=== PATIENT | female | born 1940 | race Caucasian/White ===

== ENCOUNTER → 2017-02-24 | Outpatient (CLI) | payer MEDICARE, BC | END | disposition home or self-care (01) | LOC: LABWHC1 14:47 | PROVIDERS: ATTEND Allergy & Immunology | DX: E06.3 Autoimmune thyroiditis (principal) | CPT/HCPCS: 36415; 84443 ==

== ENCOUNTER → 2017-04-16 | Outpatient (CLI) | payer MEDICARE, BC ==
[2017-04-16 17:34] LABS: Appearance,Urine Clear (Clear); Bacteria,Urine Rare /hpf; Bilirubin,Urine Negative (Negative); Glucose,Urine (UA) Negative (Negative); Ketones,Urine Negative (Negative); Leukocyte Esterase,Urine Small (Negative); Mucus,Urine Rare /hpf; Nitrite,Urine Negative (Negative); Particle Count 2162; Protein,Urine Negative (Negative); RBC,Urine <1 /hpf (0-5); Specific Gravity,Urine 1.013 (1.001-1.035); Squamous Epithelial Cell,Urine <1 /hpf (0-4); UA Billing (MACRO vs. MICRO) MICRO; Urobilinogen,Urine <2.0 mg/dL (<2.0); WBC,Urine 4 /hpf (0-5)
[2017-04-16 17:38] LABS: Partial Thromboplastin Time 22.4 sec (22.0-30.0); Prothrombin Time 10.5 sec (9.0-12.0)
== END ==
LOC: LABPAT 16:38
PROVIDERS: ATTEND Orthopaedic Surgery
DX: Z01.810 Encounter for preprocedural cardiovascular examination (principal); Z01.812 Encounter for preprocedural laboratory examination
CPT/HCPCS: 36415; 81001; 85610; 85730; 87070

== ENCOUNTER → 2017-05-31 | Outpatient (CLI) | payer MEDICARE, BC | END | disposition home or self-care (01) | LOC: LABWHC1 10:41 | PROVIDERS: ATTEND Allergy & Immunology | DX: E06.3 Autoimmune thyroiditis (principal) | CPT/HCPCS: 36415; 84436; 84439; 84443 ==

== ENCOUNTER 2018-02-01 10:41 | Day surgery (SDC) | payer MEDICARE, BC ==
[2018-01-27 15:56] VITALS: BMI 29.6
[~2018-02-01 10:41] MED LIST: LACTATED RINGERS 1,000 ML IV SCH; LIDOCAINE 1% 20 ML VIAL (10MG/ML) FOR IV START INTRADERMA PRN; ONDANSETRON 4 MG/2 ML VIAL IVP ONE
[2018-02-01] MEDS: FLURBIPROFEN 0.03% OPHTH DROPS 2.5 ML BTL OP ONE ×3 (12:43→13:00)
[2018-02-01] MEDS: CYCLOPENTOLATE 1% OPHTH SOLN 2 ML BTL OP ONE ×3 (12:46→13:03)
[2018-02-01] MEDS: PHENYLEPHRINE 10% OPHTH DROPS 5 ML BTL OP ONE ×3 (12:49→13:06)
[2018-02-01 12:57] VITALS: TEMP 97.8
[2018-02-01] MEDS ORDERED: MIDAZOLAM 2 MG/2 ML VIAL IVP ONE (13:36)
[2018-02-01] MEDS ORDERED: LIDOCAINE 1% INJ 10MG/ML (20 ML MDV) ONE (13:44)
[2018-02-01] MEDS ORDERED: PROPOFOL 10 MG/ML 20 ML VIAL IV ONE (13:44)
[2018-02-01] MEDS ORDERED: EPINEPHrine (PF) 0.5 ML in BALANCED SALT IRRIG SOLN COMB2 500 ML IRRIGATION ONE (13:54)
[2018-02-01] MEDS ORDERED: BALANCED SALT IRRIG SOLN COMB2 15 ML IRRIG.SOLN INTRAOCULA ONE (13:57)
[2018-02-01] MEDS ORDERED: HYALURONATE SODIUM INTRAOCULAR 1 EACH SYRINGE (10MG/ML) INTRAOCULA ONE (13:57)
--- NOTE | 2018-02-01 14:15 | P.OP ---
Date of Procedure: 02/01/18 Procedure(s) Performed: PREOPERATIVE DIAGNOSIS: Cataract, right eye. POSTOPERATIVE DIAGNOSIS: Cataract, right eye. OPERATION: Phacoemulsification cataract, right eye. DESCRIPTION OF PROCEDURE: The patient was taken to the preoperative holding area. Intravenous Propofol was given so as to bring about adequate sedation. The following mixture was given for local anesthesia: 5 mL of 2% lidocaine, 5 mL of 0.75% Marcaine, and 1 mL of Wydase. Approximately 4 mL was injected in the retrobulbar space of the surgical eye. Additional 1 mL was then directed to the temporal area of the surgical eye. This was performed to allow adequate neurological block of the facial muscles. The patient was revived and then taken into the operative room. The patient was prepped and draped in the usual sterile manner for the operative eye. A lid speculum was put into position. The conjunctiva was resected back from the limbus in the 12 o'clock position. Bleeding was controlled with electrocautery. A #69 blade was then used and a half-thickness scleral incision approximately 1-mm posterior to the limbus was made on bare sclera. This was shelved in the clear cornea using a crescent knife. The steep axis of astigmatism was marked using a pre-inked corneal marking device. Next a 15-degree blade was used to make a stab incision at the 3 o'clock position at the corneolimbal interface. Keratome blade was then used and the superior wound was extended into the anterior chamber. Viscoelastic was injected into the anterior chamber and to maintain its form. Next, a cystotome was used and a continuous anterior capsulotomy was made without difficulty. Hydrodissection using a blunt cannula and BSS was performed. Phaco probe was then employed and a groove extending from 12 to 6 o' clock in the lens was created. A Quentin wand was used through the stab incision so as to perform a divide and conquer technique. Next an irrigation aspiration probe was utilized and any residual cortex was removed from the eye. Again, viscoelastic was injected into the anterior chamber. An Roosevelt toric posterior chamber lens implant was placed in the cartridge and injected into the anterior chamber without difficulty. The Sinskey hook was utilized to spin the lens into position and this was again performed without any difficulty. The irrigation and aspiration probe was again employed and any residual viscoelastic was removed from the eye. Then BSS was injected into the limbal stab incision and the anterior chamber re-inflated. The conjunctiva was reapproximated using electrocautery. One drop of 0.25% Timoptic was placed over the corneal along with TobraDex ophthalmic ointment. Two sterile patches and a Grover eye shield were taped into position. The patient was transported to the recovery room in stable condition. Pathology: none sent Condition: stable Disposition: same day
[2018-02-01 14:34] VITALS: BP 117/57; PULSE 57; RESP 20
[2018-02-01] MEDS ORDERED: GENTAMICIN/PREDNISOL AC OPHTH OINT 3.5GM OPHTHALMIC ONE (23:00)
[2018-02-01] MEDS ORDERED: BUPIVACAINE (PF) 0.75% 5 ML, HYALURONIDASE, HUMAN RECOMB 150 UNIT, LIDOCAINE 2% (PF) 10... MISCELLANE ONE ×3 (23:00)
[2018-02-01] MEDS ORDERED: TIMOLOL 0.5% OPHTH DROPS 5 ML BTL OP ONE (23:00)
== END 2018-02-01 14:52 | disposition home or self-care (01) ==
LOC: OR 10:41
PROVIDERS: ATTEND Ophthalmology
DX: H25.11 Age-related nuclear cataract, right eye (principal); I34.1 Nonrheumatic mitral (valve) prolapse; E07.9 Disorder of thyroid, unspecified; M06.9 Rheumatoid arthritis, unspecified; G62.9 Polyneuropathy, unspecified; K21.9 Gastro-esophageal reflux disease without esophagitis; Z85.3 Personal history of malignant neoplasm of breast; Z90.10 Acquired absence of unspecified breast and nipple; Z79.890 Hormone replacement therapy; Z79.891 Long term (current) use of opiate analgesic; Z79.899 Other long term (current) drug therapy; Z88.8 Allergy status to other drugs, medicaments and biological substances; Z87.891 Personal history of nicotine dependence
CPT/HCPCS: 66984; V2787; C1780; J2250; J3470; J2001 ×2; J0171; J2704

== ENCOUNTER → 2018-05-26 | Outpatient (CLI) | payer MEDICARE, BC ==
[2018-05-26 14:45] LABS: HCT 42.9 % (34.0-46.0); HGB 14.2 gm/dL (11.4-16.0); MCH 31.7 pg (25.0-35.0); MCHC 33.2 g/dL (31.0-37.0); MCV 95.7 fL (80.0-100.0); Mean Platelet Volume 6.8; Platelet Count 250 k/uL (150-450); RBC 4.49 m/uL (3.80-5.40); RDW 12.8 % (11.5-15.5); WBC 5.7 k/uL (3.8-10.6)
[2018-05-26 14:54] LABS: INR 1.1 (<1.2); Partial Thromboplastin Time 25.3 sec (22.0-30.0); Prothrombin Time 10.4 sec (9.0-12.0)
[2018-05-26 14:56] LABS: Appearance,Urine Clear (Clear); Bacteria,Urine Rare /hpf; Bilirubin,Urine Negative (Negative); Blood,Urine Negative (Negative); Color,Urine Yellow; Glucose,Urine (UA) Negative (Negative); Hyaline Casts,Urine 5 /lpf (0-2); Ketones,Urine Negative (Negative); Leukocyte Esterase,Urine Large (Negative); Mucus,Urine Moderate /hpf; Nitrite,Urine Negative (Negative); Protein,Urine Negative (Negative); RBC,Urine 2 /hpf (0-5); Specific Gravity,Urine 1.019 (1.001-1.035); Squamous Epithelial Cell,Urine <1 /hpf (0-4); Urobilinogen,Urine <2.0 mg/dL (<2.0); WBC,Urine 17 /hpf (0-5)
[2018-05-26 14:59] LABS: Albumin 4.2 g/dL (3.5-5.0); Calcium 9.8 mg/dL (8.4-10.2); Potassium 4.1 mmol/L (3.5-5.1); Total Bilirubin 0.6 mg/dL (0.2-1.3); Total Protein 6.8 g/dL (6.3-8.2)
== END | disposition home or self-care (01) ==
LOC: LABPAT 13:35
PROVIDERS: ATTEND Orthopaedic Surgery
DX: Z01.812 Encounter for preprocedural laboratory examination (principal)
CPT/HCPCS: 36415; 80053; 81001; 85027; 85610; 85730; 87070

== ENCOUNTER 2018-06-06 05:47 | Inpatient (IN) | payer MEDICARE, BC ==
[2018-06-01 11:05] VITALS: BMI 28.1
[~2018-06-06 05:47] MED LIST changes: +ACETAMINOPHEN TAB 500 MG TAB PO ONE; +DEXAMETHASONE SOD PHOSPHATE 10 MG/ML 1 ML VIAL IV ONE; -LACTATED RINGERS 1,000 ML IV SCH; +MELOXICAM 7.5 MG TAB PO ONE; +MIDAZOLAM 2 MG/2 ML VIAL IV PRN; -ONDANSETRON 4 MG/2 ML VIAL IVP ONE; +TRANEXAMIC ACID 1,000 MG in SODIUM CHLORIDE 0.9% 50 ML IVPB ONE; +ceFAZolin IN SWFI 2 GM/20 ML SYRINGE IVP ONE; +fentaNYL (PF) 50 MCG/ML 2 ML AMP IV PRN
[2018-06-06] MEDS ORDERED: ONDANSETRON 4 MG/2 ML VIAL ONE (06:01)
[2018-06-06] MEDS ORDERED: LACTATED RINGERS 1,000 ML IV ONE ×2 (06:16→08:48)
[2018-06-06] MEDS ORDERED: ROPIVACAINE 246.25 MG, EPINEPHrine 0.5 MG, KETOROLAC 30 MG, cloNIDine HCL/PF 80 MCG, WA... MISCELLANE ONE ×5 (06:30)
[2018-06-06] MEDS: ONDANSETRON 4 MG/2 ML VIAL IVP ONE ×2 (06:36→09:10)
[2018-06-06] MEDS ORDERED: HYDROmorphone 1 MG/ML 1 ML SYRINGE IVP PRN ×3 (06:59)
[2018-06-06] MEDS ORDERED: NALOXONE 0.4 MG/ML 1 ML VIAL IV PRN (06:59)
[2018-06-06] MEDS ORDERED: ONDANSETRON 4 MG/2 ML VIAL IVP PRN ×2 (06:59→18:59)
[2018-06-06] MEDS ORDERED: HYDROcodone/APAP 5-325MG 1 EACH TAB PO PRN (06:59)
[2018-06-06] MEDS ORDERED: MAGNESIUM HYDROXIDE 2,400 MG/10 ML CUP PO PRN (06:59)
[2018-06-06] MEDS ORDERED: DIAZEPAM 5 MG TAB PO PRN ×2 (06:59)
[2018-06-06] MEDS ORDERED: LIDOCAINE 1% INJ 10MG/ML (20 ML MDV) ONE (07:03)
[2018-06-06] MEDS ORDERED: SODIUM CHLORIDE 0.9% IRRIG 1,000 ML BTL IRRIGATION ONE (07:03)
[2018-06-06] MEDS ORDERED: diphenhydrAMINE 50 MG/ML 1 ML VIAL ONE (07:03)
[2018-06-06] MEDS ORDERED: MIDAZOLAM 2 MG/2 ML VIAL ONE (07:03)
[2018-06-06] MEDS ORDERED: fentaNYL (PF) 50 MCG/ML 2 ML AMP ONE (07:03)
[2018-06-06] MEDS ORDERED: HEPARIN SODIUM,PORCINE 10,000 UNIT/ML 1 ML VIAL ONE (07:03)
[2018-06-06] MEDS ORDERED: SODIUM CHLORIDE 0.9% 100 ML BAG ONE (07:03)
[2018-06-06] MEDS ORDERED: TRANEXAMIC ACID 1,000 MG/10 ML VIAL ONE (07:03)
[2018-06-06] MEDS ORDERED: PROPOFOL 10 MG/ML 20 ML VIAL IV ONE (07:03)
[2018-06-06] MEDS ORDERED: ceFAZolin 3,000 MG in SODIUM CHLORIDE 0.9% IRRIGATIO 3,000 ML IRRIGATION ONE (07:39)
--- NOTE | 2018-06-06 08:41 | XR ---
EXAMINATION TYPE: XR Hip Limited LT DATE OF EXAM: 06/06/2018 COMPARISON: NONE HISTORY: Postsurgical change TECHNIQUE: One view submitted. FINDINGS: There is a prosthetic hip in near anatomic alignment. There is soft tissue edema and emphysema. IMPRESSION: 1. Postoperative change. Appears in near-anatomic alignment.
--- NOTE | 2018-06-06 08:42 | FL ---
EXAMINATION TYPE: FL guidance operating room DATE OF EXAM: 06/06/2018 HISTORY: Flouroscopy time 38 seconds of fluoroscopy provided. IMPRESSION: 1. Fluoroscopy time.
--- NOTE | 2018-06-06 08:45 | P.OP ---
Date of Procedure: 06/06/18 Preoperative Diagnosis: Severe osteoarthritis left hip Postoperative Diagnosis: Severe osteoarthritis left hip Procedure(s) Performed: Left total hip arthroplasty with a direct anterior approach Implants: Cavazos and nephew Polarstem size 3 standard [employer]azos [employer] Nephew R3, 3 hole acetabular shell, 48 mm [employer]azos [employer] Nephew reflection 6.5 mm cancellus screw, 20 mm 2 [employer]azos [employer]hew R3, XLPE 20 acetabular liner Cavazos [employer] Nephew Oxinium femoral head 32 m, +0 All components were press-fit. The articulation is Oxinium on polyethylene. Anesthesia: spinal Surgeon: Tesfaye Jones Agent Contract Clerk #1: Aziza Denis Estimated Blood Loss (ml): 200 (130 mL returned with Cell Saver) Pathology: other Condition: stable Disposition: PACU Indications for Procedure: After failure of conservative treatment we discussed the surgical and nonsurgical treatment options at length. Patient wishes to proceed with a total hip arthroplasty with a direct anterior approach. Complications specific to this procedure were discussed at length, including but not limited to infection, leg length discrepancy, dislocation, and nerve injury. Patient is aware of all these complications and informed consent was obtained Operative Findings: The operative findings are consistent with severe osteoarthritis of the left hip Description of Procedure: Patient was seen and evaluated in the preoperative area, consent was reviewed, and the surgical site was marked with a skin marker. Patient was then brought to the operating room and given prophylactic antibiotics intravenously. 1 g of Tranexamic acid was also given. A spinal anesthetic was administered by the anesthesia department. The patient was then placed on the [place] table with the bony prominences well-padded. The hip area was then prepped and draped in usual sterile fashion. A universal timeout was then performed, which confirmed the patient's name, surgical site, ALLERGIES, and procedure being performed. Next the incision site was located at 1 cm distal and 1 cm lateral to the anterior superior iliac spine. The skin and subcutaneous tissues were sharply incised. Incision was carefully dissected down to the fascia overlying the tensor fascia kallie muscle. This fascia was then incised in line with the incision. Next, using blunt finger dissection, the tensor fascia kallie muscle was dissected off its investing fascia. The muscle was then carefully retracted laterally with a cobra retractor over the lateral neck of the femur. Next, the circumflex vessels were identified and cauterized using the AquaMantis device. The anterior hip capsule was then exposed. The capsule was then opened and an inverted T fashion. Cobra retractors were then placed intracapsularly. The proximal femur was then visualized. The femoral neck was then osteotomized appropriate level above the lesser trochanter. Small amount of traction was placed with the Min[place] table. A small wedge of bone was then removed from the remaining femoral head. Next, using a corkscrew femoral head was easily removed from the acetabulum. On gross visual inspection, the femoral head had complete loss of articular cartilage in multiple periarticular osteophytes. Attention was then turned to the acetabulum. the acetabulum was exposed and any remaining labrum was excised. Sequential reaming of the acetabulum was performed using fluoroscopic guidance. When the appropriate size was reached, a trial was then placed. The position and fit of the trial was checked with fluoroscopy. The trial was then removed. Then, using fluoroscopic guidance, the final implant was impacted at 20 of anteversion and 40 of abduction, and fully seated in the acetabulum. 2 screws were then placed in the acetabulum. Again fluoroscopy was used to check position of the screws. Next, the liner was then impacted, with a 20 elevated liner located in the anterior superior quadrant. Component locking was confirmed. Attention was then directed to the femur. With the aid of the Minot table, the femur was externally rotated to approximately 130, extended, and abducted under the opposite leg. A side hook was then placed under the proximal femur, and the side hook elevator was used to elevate the proximal femur. Retractors were then placed. A capsular release was performed, as well as a release of the conjoined tendon, which afforded excellent visualization of the proximal femur. Next, a box osteotome was used to lateralize the proximal femur. A handyman was then used to locate the femoral canal. Sequential broaching was then performed with appropriate size which afforded excellent fixation in the proximal femur. A trial was then placed with appropriate head and neck, and the hip was gently reduced with the aid of the Minot table. Fluoroscopy was then used to check position of the components, as well as to ensure equal leg lengths. The hip was then gently dislocated and the trials were then removed. Final implants were then impacted and the hip was again reduced. Final fluoroscopic x-rays confirmed that the components were in anatomic position, as well as equal leg lengths. The hip was also taken through range of motion, and found to be stable. The hip was then copiously irrigated with antibiotic solution with pulsatile lavage. The hip was then irrigated with Irrisept solution. The soft tissues were then injected with a ropivacaine solution, which consisted of 246.25 mg of ropivacaine, 0.5 mg of epinephrine, 30 mg of Toradol, 80 g of clonidine, and 48.45 mL of sterile water, for a total of 100 mL of fluid injected. A second dose of 1 g of Tranexamic acid was also given. the fascia was then closed with 2-0 strata fix suture. The subcutaneous tissue was closed with 3-0 Vicryl. The subcuticular tissue was closed with 3-0 strata fix suture. The skin was then closed with Dermabond glue and a sterile silver dressing. The patient was then transferred to the recovery room in stable condition. The assistant editor SHILOH Garcia was required due to the complexity of surgery, and the need for skilled research assistant member for positioning, draping, exposure, retraction, and closure of the wound.
[2018-06-06] MEDS: LACTATED RINGERS 1,000 ML IV SCH ×2 (09:05→09:07)
[2018-06-06] MEDS: HYDROmorphone 0.5 MG/0.5 ML SYRINGE IVP PRN ×2 (09:10→09:26)
--- NOTE | 2018-06-06 09:22 | XR ---
EXAMINATION TYPE: XR Hip Limited LT DATE OF EXAM: 06/06/2018 COMPARISON: NONE HISTORY: Status post hip surgery, TECHNIQUE: One view submitted. FINDINGS: There is a prosthetic hip in near anatomic alignment. There is soft tissue edema and emphysema. IMPRESSION: 1. Postoperative change. Appears in near-anatomic alignment.
[2018-06-06] MEDS: SODIUM CHLORIDE 0.9% 1,000 ML IV SCH (09:58)
--- NOTE | 2018-06-06 12:56 | P.CONS ---
History of Present Illness - History of Present Illness This is a pleasant 78 -soaked female with past medical history of GERD, hyperlipidemia, mitral valve prolapse, spinal stenosis, osteoarthritis, rheumatoid arthritis thyroid disorder, breast cancer in 1968 status post chemo and radiotherapy, Patient was admitted for left total hip arthroplasty on 2017 secondary to severe osteoarthritis of her left hip. Review of Systems CONSTITUTIONAL: No fever, no malaise, no fatigue. HEENT: No recent visual problems or hearing problems. Denied any sore throat. CARDIOVASCULAR: No orthopnea, PND, no palpitations, no syncope. PULMONARY: No shortness of breath, no cough, no hemoptysis. GASTROINTESTINAL: No diarrhea, no nausea, no vomiting, no abdominal pain. Normoactive bowel sounds. NEUROLOGICAL: No headaches, no weakness, no numbness. HEMATOLOGICAL: Denies any bleeding or petechiae. GENITOURINARY: Denies any burning micturition, frequency, or urgency. MUSCULOSKELETAL/RHEUMATOLOGICAL: Denies any joint pain, swelling, or any muscle pain. ENDOCRINE: Denies any polyuria or polydipsia. Past Medical History Past Medical History: Cancer, Eye Disorder, GERD/Reflux, Hyperlipidemia, Mitral Valve Prolapse (MVP), Osteoarthritis (OA), Rheumatoid Arthritis (RA), Thyroid Disorder Additional Past Medical History / Comment(s): Breast Ca 1969-tx w/ chemo & radiation. urinary incontinence, hx. heart murmur, "enlarged heart" per pt. macular degeneration History of Any Multi-Drug Resistant Organisms: None Reported Past Surgical History: Breast Surgery, Cholecystectomy, Orthopedic Surgery Additional Past Surgical History / Comment(s): daniel mastectomy, partial thyroidectomy, RT knee arthroscopy. cataracts removed Past Anesthesia/Blood Transfusion Reactions: Previous Problems w/ Anesthesia, Postoperative Nausea & Vomiting (PONV) Additional Past Anesthesia/Blood Transfusion Reaction / Comm: woke up DURING PORT INSERTION; DURING CATARACT SURG WAS "BABBLING." Past Psychological History: No Psychological Hx Reported Smoking Status: Former smoker Past Alcohol Use History: Occasional Additional Past Alcohol Use History / Comment(s): quit smoking AGE 35, started as a teenager, WAS OCC USER. Past Drug Use History: None Reported - Past Family History Mother Family Medical History: Cancer Additional Family Medical History / Comment(s): Breast. Brother(s) Family Medical History: Cancer Medications and Allergies Home Medications Medication Instructions Recorded Confirmed Type Ascorbic Acid [Vitamin C] 500 mg PO DAILY 08/03/16 06/06/18 History Calcium Carbonate/Vitamin D3 1 tab PO DAILY 08/03/16 06/06/18 History [Calcium 600-Vit D3 200 Tablet] Glucosamine Sulfate 500 mg PO DAILY 08/03/16 06/06/18 History Multivitamins, Thera [Multivitamin] 1 tab PO DAILY 08/03/16 06/06/18 History Ubidecarenone [Co Q-10] 200 mg PO DAILY 08/03/16 06/06/18 History Cetirizine HCl [Zyrtec] 10 mg PO DAILY 01/27/18 06/06/18 History Cholecalciferol [Vitamin D3] 2,000 unit PO DAILY 01/27/18 06/06/18 History Garlic 1 tab PO DAILY 01/27/18 06/06/18 History Glucosam/Bj-Msm1/C/Black/Bosw 1 tab PO DAILY 01/27/18 06/06/18 History [Glucosamine-Chondroitin Tablet] Comstock-3 Fatty Acids [Comstock-3] 1,000 mg PO DAILY 01/27/18 06/06/18 History Ranitidine HCl [Zantac] 150 mg PO HS 01/27/18 06/06/18 History traMADol HCL [Ultram] 50 mg PO Q6HR PRN 01/27/18 06/06/18 History Fluticasone Nasal [place] [Flonase 2 spr EA NOSTRIL DAILY 06/01/18 06/06/18 History Nasal [place]] Focus Macular Vitamin 1 tab PO DAILY 06/01/18 06/06/18 History Levothyroxine Sodium [Synthroid] 88 mcg PO DAILY 06/06/18 06/06/18 History Allergies Allergy/AdvReac Type Severity Reaction Status Date / Time metoclopramide HCl Allergy Hallucinati Verified 06/06/18 08:58 [From Reglan] ons Physical Exam Vitals: Vital Signs Temp Pulse Pulse Resp BP Pulse Ox 06/06/18 10:45 59 L 127/65 99 06/06/18 10:30 58 L 127/66 96 06/06/18 10:15 53 L 129/76 100 06/06/18 10:00 54 L 136/76 100 06/06/18 09:45 53 L 16 126/72 99 07/23/18 09:31 54 L 16 139/61 97 06/06/18 09:17 51 L 16 133/59 92 L 06/06/18 09:00 54 L 16 135/65 98 06/06/18 08:51 97.6 F 55 L 14 132/63 98 06/06/18 06:15 98.1 F 78 18 156/72 98 Intake and Output 06/05/18 06/06/18 06/06/18 22:59 06:59 14:59 Intake Total 200 901 Output Total 250 Balance 200 651 Intake: IV 200 901 Output: Estimated Blood Loss 250 Other: Weight 76.657 kg GENERAL: The patient is alert and oriented x3, not in any acute distress. Well developed, well nourished. HEENT: Pupils are round and equally reacting to light. EOMI. No scleral icterus. No conjunctival pallor. Normocephalic, atraumatic. No pharyngeal erythema. No thyromegaly. CARDIOVASCULAR: S1 and S2 present. No murmurs, rubs, or gallops. PULMONARY: Chest is clear to auscultation, no wheezing or crackles. ABDOMEN: Soft, nontender, nondistended, normoactive bowel sounds. No palpable organomegaly. MUSCULOSKELETAL: No joint swelling or deformity. EXTREMITIES: No cyanosis, clubbing, or pedal edema. NEUROLOGICAL: Gross neurological examination did not reveal any focal deficits. SKIN: No rashes. Assessment and Plan Assessment: Severe osteoarthritis, including the left hip Status post left total hip arthroplasty on 06/03/2018 Spinal stenosis,tus Chronic low back pain, secondary to above. Status post steroid injection us month which didn't help much Hypothyroidism GERD Plan: patient was admitted for left total hip arthroplasty. Continue with symptomatic treatment. Continue with same treatment. Pain management and DVT prophylaxis as per primary team. Patient denies chest pain or dyspnea. Her pain looks controlled. Resume home medication. Monitor vitals. Expect the patient to follow-up with her primary care doctor in 1 week after discharge. Further recommendation is placed on the clinical course DVT prophylaxis, defer to the primary team. patient is on aspirin twice a day as per primary team GI prophylaxis Pepcid Thank you for consulting us
[2018-06-06] MEDS: hydrOXYzine PAMOATE 25 MG CAP PO PRN (13:04)
[2018-06-06] MEDS ORDERED: ONDANSETRON 4 MG/2 ML VIAL IVP STA (14:13)
[2018-06-06] MEDS ORDERED: diphenhydrAMINE 50 MG/ML 1 ML VIAL IVP PRN (14:15)
[2018-06-06] MEDS: ceFAZolin IN SWFI 2 GM/20 ML SYRINGE IVP SCH (15:55)
[2018-06-06] MEDS ORDERED: FAMOTIDINE 20 MG/2 ML VIAL IV SCH (21:00)
[2018-06-06] MEDS: ASPIRIN 325 MG TAB PO SCH (22:11)
[2018-06-06] MEDS: FAMOTIDINE 20 MG TAB PO SCH (22:13)
[2018-06-06] MEDS: SENNOSIDES-DOCUSATE SODIUM 1 EACH TAB PO SCH (22:14)
[2018-06-07] MEDS: ceFAZolin IN SWFI 2 GM/20 ML SYRINGE IVP SCH (00:08)
[2018-06-07] MEDS: SODIUM CHLORIDE 0.9% 1,000 ML IV SCH ×2 (00:08→15:01)
[2018-06-07] MEDS: hydrOXYzine PAMOATE 25 MG CAP PO PRN (06:01)
[2018-06-07 07:50] LABS: Basophils % (A) 0 %; Eosinophils % (A) 1 %; HCT 29.9 % (34.0-46.0); Lymphocytes # (A) 1.1 k/uL (1.0-4.8); Lymphocytes % (A) 23 %; MCH 31.3 pg (25.0-35.0); MCHC 32.8 g/dL (31.0-37.0); MCV 95.6 fL (80.0-100.0); Mean Platelet Volume 6.9; Monocytes # (A) 0.4 k/uL (0-1.0); Monocytes % (A) 8 %; Neutrophils # (A) 3.4 k/uL (1.3-7.7); Neutrophils % (A) 68 %; Platelet Count 172 k/uL (150-450); RBC 3.13 m/uL (3.80-5.40); RDW 13.2 % (11.5-15.5)
[2018-06-07 07:56] LABS: HGB 9.8 gm/dL (11.4-16.0)
[2018-06-07] MEDS ORDERED: MELOXICAM 7.5 MG TAB PO SCH (09:00)
[2018-06-07] MEDS ORDERED: KETOROLAC 60 MG/2 ML VIAL IVP STA (09:10)
--- NOTE | 2018-06-07 09:14 | P.PN ---
Subjective Progress Note Date: 06/07/18 This is a 78-year-old female who is status post left total hip arthroplasty. This is postoperative day #1. Patient is seen and evaluated at bedside with Dr. Tesfaye Jones. Patient does complain of nausea and pain today. Patient states that she has been up and walking with nursing. Patient denies any fever/ chills, numbness, weakness, tingling, abdominal pain, shortness of breath or chest pain. Objective - Vital Signs Vital signs: Vital Signs Temp 98.5 F 06/07/18 00:20 Pulse 65 06/07/18 00:20 Resp 16 06/07/18 00:50 BP 121/71 06/07/18 00:20 Pulse Ox 97 06/07/18 00:20 Intake & Output 06/06/18 06/07/18 06/07/18 18:59 06:59 18:59 Intake Total 901 1595 Output Total 250 Balance 651 1595 Weight 76.657 kg Intake: IV 901 Intake, IV Titration 845 Amount Lactated Ringers 1,000 ml 845 @ 0 mls/hr IV .[facility] Rx#:[id number] Oral 750 Output: Estimated Blood Loss 250 Other: Voiding Method Toilet Toilet Incontinent Incontinent # Voids 1 1 - Exam Vital signs are stable. Patient is in no acute distress and is alert and oriented 3. Calf is soft and nontender to palpation. Dressing is clean, dry, and intact. Patient has full foot and ankle motion without pain or difficulty. Neurovascular status and circulatory status are intact. - Labs CBC & Chem 7: 06/07/18 06:59 Labs: Abnormal Lab Results - Last 24 Hours (Table) 06/07/18 Range/Units 06:59 RBC 3.13 L (3.80-5.40) m/uL Hgb 9.8 L D (11.4-16.0) gm/dL Hct 29.9 L (34.0-46.0) % Assessment and Plan (1) Primary osteoarthritis of left hip Current Visit: Yes Status: Acute Code(s): M16.12 - UNILATERAL PRIMARY OSTEOARTHRITIS, LEFT HIP SNOMED Code(s): 862187767 (2) S/P total hip arthroplasty Current Visit: Yes Status: Acute Code(s): Z96.649 - PRESENCE OF UNSPECIFIED ARTIFICIAL HIP JOINT SNOMED Code(s): 613922755663 Plan: Continue routine postop care. Continue antocoagulation. Weightbearing as tolerated with a walker Leave dressing in place for 10 days. Likely discharge to rehab .
[2018-06-07] MEDS: FAMOTIDINE 20 MG TAB PO SCH ×2 (09:31→21:26)
[2018-06-07] MEDS: ASPIRIN 325 MG TAB PO SCH ×2 (09:31→21:25)
[2018-06-07] MEDS: LACTATED RINGERS 1,000 ML IV SCH (11:59)
[2018-06-07] MEDS ORDERED: KETOROLAC 30 MG/ML 1 ML VIAL IVP SCH (13:00)
--- NOTE | 2018-06-07 17:07 | P.PN ---
Subjective This is a pleasant 78 -soaked female with past medical history of GERD, hyperlipidemia, mitral valve prolapse, spinal stenosis, osteoarthritis, rheumatoid arthritis thyroid disorder, breast cancer in 1969 status post chemo and radiotherapy, Patient was admitted for left total hip arthroplasty on 2017 secondary to severe osteoarthritis of her left hip. 06/07/2018 Patient was sitting at bedside, complaining from mild pain at the surgery site. She had more severe pain area during the day she received stronger pain medication. Patient blood pressure was on the low side systolic blood pressure is running between 99 and 124, however patient denies chest pain, no dyspnea, no dizziness. She states usually her blood pressure runs low around 100 to 110s , patient received some IV fluids. However her IV line went off by the time I' m seeing her. Her blood pressure was 124/74 and heart rate was 66. And her pain medication change to oral. Discussed with the staff to DC NSAIDs medication Objective - Vital Signs Vital signs: Vital Signs Temp 98.7 F 06/07/18 15:30 Pulse 68 06/07/18 15:30 Resp 16 06/07/18 15:30 BP 124/74 06/07/18 16:53 Pulse Ox 97 06/07/18 15:30 Intake & Output 06/06/18 06/07/18 06/07/18 18:59 06:59 18:59 Intake Total 901 1595 Output Total 250 Balance 651 1595 Weight 76.657 kg 76.657 kg Intake: IV 901 Intake, IV Titration 845 Amount Lactated Ringers 1,000 ml 845 @ 0 mls/hr IV .[facility] ONE Rx#:[id number] Oral 750 Output: Estimated Blood Loss 250 Other: Voiding Method Toilet Toilet Incontinent Incontinent # Voids 1 1 - Exam Assessment: Severe osteoarthritis, including the left hip Status post left total hip arthroplasty on 06/03/2018 Spinal stenosis,tus Chronic low back pain, secondary to above. Status post steroid injection us month which didn't help much Hypothyroidism GERD Plan: patient was admitted for left total hip arthroplasty. Continue with symptomatic treatment. Continue with same treatment. Pain management and DVT prophylaxis as per primary team. Patient denies chest pain or dyspnea. Her pain looks controlled. Resume home medication. Monitor vitals. Expect the patient to follow-up with her primary care doctor in 1 week after discharge. Further recommendation is placed on the clinical course DVT prophylaxis, defer to the primary team. patient is on aspirin twice a day as per primary team GI prophylaxis Pepcid Thank you for consulting us - Labs CBC & Chem 7: 06/07/18 06:59 Labs: Abnormal Lab Results - Last 24 Hours (Table) 06/07/18 Range/Units 06:59 RBC 3.13 L (3.80-5.40) m/uL Hgb 9.8 L D (11.4-16.0) gm/dL Hct 29.9 L (34.0-46.0) % Assessment and Plan Assessment: Severe osteoarthritis, including the left hip Status post left total hip arthroplasty on 06/03/2018 Spinal stenosis,tus Chronic low back pain, secondary to above. Status post steroid injection us month which didn't help much Hypothyroidism GERD Plan: patient was admitted for left total hip arthroplasty. Continue with symptomatic treatment. Continue with same treatment. Pain management and DVT prophylaxis as per primary team. Patient denies chest pain or dyspnea. Her pain looks controlled. Resume home medication. Monitor vitals. Expect the patient to follow-up with her primary care doctor in 1 week after discharge. Further recommendation is placed on the clinical course Patient most likely will be discharged to inpatient physical rehab by tomorrow DVT prophylaxis, defer to the primary team. patient is on aspirin twice a day as per primary team GI prophylaxis Pepcid Thank you for consulting us
[2018-06-07] MEDS ORDERED: HYDROmorphone 2 MG TAB PO PRN ×3 (20:20→20:21)
[2018-06-07] MEDS: SENNOSIDES-DOCUSATE SODIUM 1 EACH TAB PO SCH (21:26)
[2018-06-08] MEDS: HYDROcodone/APAP 5-325MG 1 EACH TAB PO PRN ×2 (00:54→07:20)
[2018-06-08] MEDS: SODIUM CHLORIDE 0.9% 1,000 ML IV SCH (07:30)
[2018-06-08] MEDS: hydrOXYzine PAMOATE 25 MG CAP PO PRN (08:45)
[2018-06-08] MEDS: FAMOTIDINE 20 MG TAB PO SCH ×2 (08:48→20:32)
[2018-06-08] MEDS: ASPIRIN 325 MG TAB PO SCH ×2 (08:48→20:32)
[2018-06-08] MEDS ORDERED: traMADol 50 MG TAB PO PRN ×2 (09:11)
[2018-06-08] MEDS ORDERED: ONDANSETRON ODT 4 MG TAB PO STA (10:01)
[2018-06-08] MEDS: LACTATED RINGERS 1,000 ML IV SCH (11:20)
--- NOTE | 2018-06-08 13:09 | P.PN ---
Subjective Progress Note Date: 06/08/18 This is a 78-year-old female who is status post left total hip arthroplasty. This is postoperative day #2. Patient is seen and evaluated at bedside with Dr. Tesfaye Jones. patient does complain of pain in the left hip along with nausea. Patient states that she has been working with physical therapy. Patient denies any fever/chills, numbness, weakness, tingling, abdominal pain, shortness of breath or chest pain. Objective - Vital Signs Vital signs: Vital Signs Temp 98.5 F 06/08/18 07:31 Pulse 79 06/08/18 07:31 Resp 16 06/08/18 07:45 BP 146/80 06/08/18 07:31 Pulse Ox 97 06/08/18 07:31 Intake & Output 06/07/18 06/08/18 06/08/18 18:59 06:59 18:59 Intake Total 1140 118 Balance 1140 118 Weight 76.657 kg Intake: Oral 1140 118 Other: Voiding Method Toilet Incontinent # Voids 1 2 2 - Exam Vital signs are stable. Patient is in no acute distress and is alert and oriented 3. Calf is soft and nontender to palpation. Dressing is clean, dry, and intact. Patient has full foot and ankle motion without pain or difficulty. Neurovascular status and circulatory status are intact. - Labs CBC & Chem 7: 06/07/18 06:59 Assessment and Plan (1) Primary osteoarthritis of left hip Current Visit: Yes Status: Acute Code(s): M16.12 - UNILATERAL PRIMARY OSTEOARTHRITIS, LEFT HIP SNOMED Code(s): 272898020 (2) S/P total hip arthroplasty Current Visit: Yes Status: Acute Code(s): Z96.649 - PRESENCE OF UNSPECIFIED ARTIFICIAL HIP JOINT SNOMED Code(s): 665942178068 Plan: Continue routine postop care. Will change pain medication to tramadol instead of Adair to help with nausea. The patient takes tramadol at home. Continue antocoagulation. Weightbearing as tolerated with a walker Leave dressing in place for 10 days. Likely discharge to rehab .
[2018-06-08 13:16] LABS: Calcium 8.6 mg/dL (8.4-10.2)
[2018-06-08] MEDS: SENNOSIDES-DOCUSATE SODIUM 1 EACH TAB PO SCH (20:32)
[2018-06-09 07:18] LABS: Basophils % (A) 0 %; Eosinophils # (A) 0.1 k/uL (0-0.7); Eosinophils % (A) 2 %; HCT 27.9 % (34.0-46.0); HGB 9.3 gm/dL (11.4-16.0); Lymphocytes # (A) 1.1 k/uL (1.0-4.8); Lymphocytes % (A) 24 %; MCH 32.2 pg (25.0-35.0); MCHC 33.5 g/dL (31.0-37.0); MCV 96.3 fL (80.0-100.0); Mean Platelet Volume 6.9; Monocytes # (A) 0.4 k/uL (0-1.0); Monocytes % (A) 8 %; Neutrophils % (A) 65 %; Platelet Count 186 k/uL (150-450); RDW 13.2 % (11.5-15.5); WBC 4.6 k/uL (3.8-10.6)
[2018-06-09 08:26] VITALS: RESP 16
--- NOTE | 2018-06-09 08:57 | P.DS ---
Providers Date of admission: 06/06/18 05:47 Expected date of discharge: 06/09/18 Attending physician: Tesfaye Jones Consults: 06/06/18 06:59 Consult Physician Routine Consulting Provider: Sky Uribe III Consult Reason/Comments: medical management Do you want consulting provider notified?: Yes 06/06/18 09:18 Consult Physician Routine Consulting Provider: Clement Motley Consult Reason/Comments: medical managment Do you want consulting provider notified?: Yes Primary care physician: Sky Uribe - Discharge Diagnosis(es) (1) Primary osteoarthritis of left hip Current Visit: Yes Status: Acute (2) S/P total hip arthroplasty Current Visit: Yes Status: Acute Hospital Course: This is a 78-year-old female with a known history of degenerative arthritis of the left hip. The patient presents for evaluation. After discussion and consideration patient elects to proceed with total hip arthroplasty. The patient is seen preoperatively by Dr. Jones and medically cleared for surgery by their primary care physician. Patient is admitted to [facility] on 06/06/2018 for total hip arthroplasty. The procedures performed without complication or sequelae. The patient is doing well postoperatively. Labs and vital signs are stable on day of discharge. On day of discharge patient's hip incision is healing well. There is minimal erythema. There is no drainage noted at this time. There is minimal soft tissue swelling to the hip and thigh. Patient has full foot and ankle motion without difficulty or pain. Calf is soft and nontender to palpation. Neurovascular status to the left lower extremity is intact. Patient is discharged to rehab in good condition. Please see med rec for accurate list of home medications. Plan - Discharge Summary Discharge Rx Participant: Yes New Discharge Prescriptions: New Aspirin 325 mg PO BID #60 tab hydrOXYzine PAMOATE [Vistaril] 25 mg PO Q6H PRN #30 capsule PRN Reason: Pain Ondansetron Odt [Zofran Odt] 1 - 2 tab PO Q8HR PRN #21 tab PRN Reason: Nausea Sennosides [Senokot] 1 tab PO BID #60 tablet traMADol HCl [Ultram] 50 mg PO Q6H PRN #28 tab PRN Reason: Pain No Action Multivitamins, Thera [Multivitamin] 1 tab PO DAILY Glucosamine Sulfate 500 mg PO DAILY Calcium Carbonate/Vitamin D3 [Calcium 600-Vit D3 200 Tablet] 1 tab PO DAILY Ascorbic Acid [Vitamin C] 500 mg PO DAILY Ubidecarenone [Co Q-10] 200 mg PO DAILY Cetirizine HCl [Zyrtec] 10 mg PO DAILY Cholecalciferol [Vitamin D3] 2,000 unit PO DAILY Garlic 1 tab PO DAILY Glucosam/Bj-Msm1/C/Black/Bosw [Glucosamine-Chondroitin Tablet] 1 tab PO DAILY [place]-3 Fatty Acids [[place]-3] 1,000 mg PO DAILY Ranitidine HCl [Zantac] 150 mg PO HS traMADol HCL [Ultram] 50 mg PO Q6HR PRN PRN Reason: Pain Fluticasone Nasal [place] [Flonase Nasal [place]] 2 spr EA NOSTRIL DAILY Focus Macular Vitamin 1 tab PO DAILY Levothyroxine Sodium [Synthroid] 88 mcg PO DAILY Discharge Medication List Ascorbic Acid [Vitamin C] 500 mg PO DAILY 08/03/16 [History] Calcium Carbonate/Vitamin D3 [Calcium 600-Vit D3 200 Tablet] 1 tab PO DAILY [History] Glucosamine Sulfate 500 mg PO DAILY 08/03/16 [History] Multivitamins, Thera [Multivitamin] 1 tab PO DAILY 08/03/16 [History] Ubidecarenone [Co Q-10] 200 mg PO DAILY 08/03/16 [History] Cetirizine HCl [Zyrtec] 10 mg PO DAILY 01/27/18 [History] Cholecalciferol [Vitamin D3] 2,000 unit PO DAILY 01/27/18 [History] Garlic 1 tab PO DAILY 01/27/18 [History] Glucosam/Bj-Msm1/C/Black/Bosw [Glucosamine-Chondroitin Tablet] 1 tab PO DAILY 01/27/18 [History] [place]-3 Fatty Acids [[place]-3] 1,000 mg PO DAILY 01/27/18 [History] Ranitidine HCl [Zantac] 150 mg PO HS 01/27/18 [History] traMADol HCL [Ultram] 50 mg PO Q6HR PRN 01/27/18 [History] Fluticasone Nasal [place] [Flonase Nasal [place]] 2 spr EA NOSTRIL DAILY 06/01/18 [ History] Focus Macular Vitamin 1 tab PO DAILY 06/01/18 [History] Levothyroxine Sodium [Synthroid] 88 mcg PO DAILY 06/06/18 [History] Aspirin 325 mg PO BID #60 tab 06/09/18 [Rx] Ondansetron Odt [Zofran Odt] 1 - 2 tab PO Q8HR PRN #21 tab 06/09/18 [Rx] Sennosides [Senokot] 1 tab PO BID #60 tablet 06/09/18 [Rx] hydrOXYzine PAMOATE [Vistaril] 25 mg PO Q6H PRN #30 capsule 06/09/18 [Rx] traMADol HCl [Ultram] 50 mg PO Q6H PRN #28 tab 06/09/18 [Rx] Follow up Appointment(s)/Referral(s): Sky Uribe III, MD [Primary Care Provider] - 1 Week Tesfaye Jones DO [Doctor of Osteopathic Medicine] - 06/20/18 8:50 am Activity/Diet/Wound Care/Special Instructions: Weightbearing as tolerated with walker Leave dressing intact. Dressing may be removed by home care nurse in 10 days. May shower with dressing on. Follow-up with [facility] in 2 weeks, please call with any questions or concerns [phone] Discharge Disposition: TRANSFER TO SNF/ECF
[2018-06-09] MEDS: FAMOTIDINE 20 MG TAB PO SCH (09:04)
[2018-06-09] MEDS: ASPIRIN 325 MG TAB PO SCH (09:04)
[2018-06-09] MEDS: LACTATED RINGERS 1,000 ML IV SCH (10:37)
[2018-06-09 15:07] VITALS: BP 99/62; PULSE 67; TEMP 97.9
--- NOTE | 2018-06-09 20:31 | P.PN ---
Subjective This is a pleasant 78 -soaked female with past medical history of GERD, hyperlipidemia, mitral valve prolapse, spinal stenosis, osteoarthritis, rheumatoid arthritis thyroid disorder, breast cancer in 1969 status post chemo and radiotherapy, Patient was admitted for left total hip arthroplasty on 2017 secondary to severe osteoarthritis of her left hip. 06/07/2018 Patient was sitting at bedside, complaining from mild pain at the surgery site. She had more severe pain area during the day she received stronger pain medication. Patient blood pressure was on the low side systolic blood pressure is running between 99 and 124, however patient denies chest pain, no dyspnea, no dizziness. She states usually her blood pressure runs low around 100 to 110s , patient received some IV fluids. However her IV line went off by the time I' m seeing her. Her blood pressure was 124/74 and heart rate was 66. And her pain medication change to oral. Discussed with the staff to DC NSAIDs medication 06/08/2018 Patient was lying in bed, sleeping, easily to awake. She is a AAOx3. Patient could not tolerate [place], causing projectile vomiting 06/09/2018 pt is lying in bed , not in distress, no new complaint , she is AAO3, no chest pain ,no dyspnea , no change in urine or bowel habits, her nausea and vomiting are resolved, minimal pain at the surgical side , that pt does not want pain medication when i saw her, pt is going to be discharged to rehab today and pt is agreeable Objective - Vital Signs Vital signs: Vital Signs Temp 98.3 F 06/09/18 07:50 Pulse 71 06/09/18 07:50 Resp 16 06/09/18 07:50 BP 114/72 06/09/18 07:50 Pulse Ox 99 06/09/18 07:50 Intake & Output 06/08/18 06/09/18 06/09/18 18:59 06:59 18:59 Intake Total 238 960 240 Balance 238 960 240 Intake: Oral 238 960 240 Other: # Voids 2 1 1 - Exam Assessment: Severe osteoarthritis, including the left hip Status post left total hip arthroplasty on 06/03/2018 Spinal stenosis,tus Chronic low back pain, secondary to above. Status post steroid injection us month which didn't help much Hypothyroidism GERD Plan: patient was admitted for left total hip arthroplasty. Continue with symptomatic treatment. Continue with same treatment. Pain management and DVT prophylaxis as per primary team. Patient denies chest pain or dyspnea. Her pain looks controlled. Resume home medication. Monitor vitals. Expect the patient to follow-up with her primary care doctor in 1 week after discharge. Further recommendation is placed on the clinical course DVT prophylaxis, defer to the primary team. patient is on aspirin twice a day as per primary team GI prophylaxis Pepcid Thank you for consulting us - Labs CBC & Chem 7: 06/09/18 06:36 06/08/18 12:33 Labs: Abnormal Lab Results - Last 24 Hours (Table) 06/09/18 Range/Units 06:36 RBC 2.90 L (3.80-5.40) m/uL Hgb 9.3 L (11.4-16.0) gm/dL Hct 27.9 L (34.0-46.0) % Assessment and Plan Assessment: Severe osteoarthritis, including the left hip Status post left total hip arthroplasty on 06/03/2018 Spinal stenosis,tus Chronic low back pain, secondary to above. Status post steroid injection us month which didn't help much Hypothyroidism GERD Plan: patient was admitted for left total hip arthroplasty. Continue with symptomatic treatment. Continue with same treatment. Pain management and DVT prophylaxis as per primary team. Patient denies chest pain or dyspnea. Her pain looks controlled. Resume home medication. Monitor vitals. Expect the patient to follow-up with her primary care doctor in 1 week after discharge. Further recommendation is placed on the clinical course Patient most likely will be discharged to inpatient physical rehab by tomorrow, pt is stable from medical standpoint to be discharged today DVT prophylaxis, defer to the primary team. patient is on aspirin twice a day as per primary team GI prophylaxis Pepcid we recommend pt f/u with her pcp in one week , pt instructed and she agrees Thank you for consulting us
== END 2018-06-09 15:35 | DRG 470 ==
LOC: 2ORMAIN 05:47 → 3SUR 08:51
PROVIDERS: ADMIT Orthopaedic Surgery; ATTEND Orthopaedic Surgery
PROC: 30233N0 Transfusion of Autologous Red Blood Cells into Peripheral Vein, Percutaneous Approach (ICD-10-PCS; 2018-06-06)
PROC: 0SRD06A Replacement of Left Knee Joint with Oxidized Zirconium on Polyethylene Synthetic Substitute, Uncemented, Open Approach (ICD-10-PCS; principal; 2018-06-06 07:00)
DX: M16.12 Unilateral primary osteoarthritis, left hip (principal); E78.5 Hyperlipidemia, unspecified; H35.30 Unspecified macular degeneration; I08.0 Rheumatic disorders of both mitral and aortic valves; K21.9 Gastro-esophageal reflux disease without esophagitis; M06.9 Rheumatoid arthritis, unspecified; G89.29 Other chronic pain; M48.00 Spinal stenosis, site unspecified; R32 Unspecified urinary incontinence; M54.5 Low back pain; E89.0 Postprocedural hypothyroidism; H91.90 Unspecified hearing loss, unspecified ear; R26.81 Unsteadiness on feet; Z85.3 Personal history of malignant neoplasm of breast; Z87.891 Personal history of nicotine dependence; Z92.21 Personal history of antineoplastic chemotherapy; Z92.3 Personal history of irradiation; Z98.42 Cataract extraction status, left eye; Z98.41 Cataract extraction status, right eye; Z96.1 Presence of intraocular lens; Z79.890 Hormone replacement therapy; Z79.899 Other long term (current) drug therapy; Z88.6 Allergy status to analgesic agent; Z88.8 Allergy status to other drugs, medicaments and biological substances; Z91.048 Other nonmedicinal substance allergy status; Z90.13 Acquired absence of bilateral breasts and nipples; Z90.49 Acquired absence of other specified parts of digestive tract; Z80.9 Family history of malignant neoplasm, unspecified
CPT/HCPCS: 73501; 80048; 83735; 85025; 86850; 86891; 86900; 86901; 88305; 88311

== ENCOUNTER 2019-02-14 17:12 | Emergency (ER) | payer MEDICARE, BC ==
[2019-02-14 17:23] VITALS: TEMP 97.9
[2019-02-14] MEDS ORDERED: SODIUM CHLORIDE 0.9% 500 ML 500 ML IV STA (17:54)
[2019-02-14 18:18] LABS: Basophils % (A) 0 %; Eosinophils # (A) 0.2 k/uL (0-0.7); Eosinophils % (A) 3 %; HGB 13.4 gm/dL (11.4-16.0); Lymphocytes # (A) 1.9 k/uL (1.0-4.8); Lymphocytes % (A) 35 %; MCH 29.6 pg (25.0-35.0); MCHC 31.2 g/dL (31.0-37.0); MCV 94.9 fL (80.0-100.0); Mean Platelet Volume 7.1; Monocytes # (A) 0.3 k/uL (0-1.0); Monocytes % (A) 5 %; Neutrophils % (A) 55 %; Platelet Count 234 k/uL (150-450); RBC 4.53 m/uL (3.80-5.40); RDW 13.5 % (11.5-15.5); WBC 5.5 k/uL (3.8-10.6)
--- NOTE | 2019-02-14 18:20 | ED ---
General Adult HPI - General Chief complaint: Neuro Symptoms/Deficit Stated complaint: dizziness Time Seen by Provider: 02/14/19 17:36 Source: patient, RN notes reviewed Mode of arrival: ambulatory Limitations: no limitations - History of Present Illness Initial comments: 78-year-old female with a PMH including Breast cancer, mitral valve prolapse, hyperlipidemia, GERD, cataracts, rheumatoid arthritis, thyroid disorder presents to the emergency department for a chief complaint of dizziness. Patient states that about 1.5 hours prior to arrival she had an acute onset episode of dizziness. She states the room was spinning around her. Patient states she was at her friend's house when this occurred. This lasted for about 3 minutes and then resolved. Patient states she used of floaters in her right eye and went to the eye doctor immediately after this episode of dizziness because he told her to come there if she had any symptoms due to possibility of detach retina. Patient was evaluated and there was no detached retina found but she was sent to the emergency department for possible TIA. Patient has had a complete resolution of symptoms stating she is feeling completely better. She has not experienced something like this before. Does admit that she felt unsteady when this occurred. Patient has no other complaints at this time including shortness of breath, chest pain, abdominal pain, nausea or vomiting, headache, or visual changes. - Related Data Home Medications Medication Instructions Recorded Confirmed Ascorbic Acid [Vitamin C] 500 mg PO DAILY 08/03/16 02/14/19 Calcium Carbonate/Vitamin D3 1 tab PO DAILY 08/03/16 02/14/19 [Calcium 600-Vit D3 200 Tablet] Multivitamins, Thera [Multivitamin 1 tab PO DAILY 08/03/16 02/14/19 (formulary)] Cetirizine HCl [Zyrtec] 10 mg PO DAILY 01/27/18 02/14/19 Cholecalciferol [Vitamin D3] 2,000 unit PO DAILY 01/27/18 02/14/19 Garlic 1 tab PO DAILY 01/27/18 02/14/19 Glucosam/Bj-Msm1/C/Black/Bosw 1 tab PO DAILY 01/27/18 02/14/19 [Glucosamine-Chondroitin Tablet] [place]-3 Fatty Acids [[place]-3] 1,000 mg PO DAILY 01/27/18 02/14/19 Fluticasone Nasal [place] [Flonase 2 spr EA NOSTRIL DAILY 06/01/18 02/14/19 Nasal [place]] Focus Macular Vitamin 1 tab PO DAILY 06/01/18 02/14/19 Levothyroxine Sodium [Synthroid] 88 mcg PO DAILY 06/06/18 02/14/19 Allergies Allergy/AdvReac Type Severity Reaction Status Date / Time metoclopramide HCl Allergy Hallucinati Verified 02/14/19 18:06 [From Reglan] ons Review of Systems ROS Statement: Those systems with pertinent positive or pertinent negative responses have been documented in the HPI. ROS Other: All systems not noted in ROS Statement are negative. Past Medical History Past Medical History: Cancer, Eye Disorder, GERD/Reflux, Hyperlipidemia, Mitral Valve Prolapse (MVP), Rheumatoid Arthritis (RA), Thyroid Disorder Additional Past Medical History / Comment(s): Breast Ca 1969-tx w/ chemo & radiation. RT EYE CATARACT. History of Any Multi-Drug Resistant Organisms: None Reported Past Surgical History: Breast Surgery, Cholecystectomy, Orthopedic Surgery Additional Past Surgical History / Comment(s): daniel mastectomy, partial thy roidectomy, RT knee arthroscopy. EXC LT EYE CATARCT. Past Anesthesia/Blood Transfusion Reactions: Previous Problems w/ Anesthesia Additional Past Anesthesia/Blood Transfusion Reaction / Comment(s): wakes up during OR - DURING PORT INSERTION; DURING CATARACT SURG WAS "BABBLING." Past Psychological History: No Psychological Hx Reported Smoking Status: Former smoker Past Alcohol Use History: Occasional Past Drug Use History: None Reported - Past Family History Mother Family Medical History: Cancer Additional Family Medical History / Comment(s): Breast. 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 Absent: scleral icterus, conjunctival injection, periorbital swelling ENT exam: Present: normal exam, normal oropharynx, mucous membranes moist, TM's normal bilaterally, normal external ear exam Neck exam: Present: normal inspection, full ROM. Absent: tenderness, meningismus, lymphadenopathy Respiratory exam: Present: normal lung sounds bilaterally. Absent: respiratory distress, wheezes, rales, rhonchi, stridor Cardiovascular Exam: Present: regular rate, normal rhythm, normal heart sounds. Absent: systolic murmur, diastolic murmur, rubs, gallop, clicks GI/Abdominal exam: Present: soft, normal bowel sounds. Absent: distended, tenderness, guarding, rebound, rigid Extremities exam: Present: normal inspection, full ROM, normal capillary refill. Absent: tenderness, pedal edema, joint swelling, calf tenderness Neurological exam: Present: alert, oriented X3, CN II-XII intact, normal gait. Absent: motor sensory deficit Expanded Patient oriented to: Present: person, place, time Speech: Present: fluid speech Cranial nerves: EOM's Intact: Normal, Tongue Deviation: Normal, Nystagmus: Normal, Facial Sensation: Normal Cerebellar function: Finger to Nose: Normal, Heel to [place]: Normal, Romberg: Normal Upper motor neuron: Pronator Drift: Normal Sensory exam: Upper Extremity Light Touch: Normal, Upper Extremity Pin Prick: Normal, Lower Extremity Light Touch: Normal, Lower Extremity Pin Prick: Normal Motor strength exam: RUE: 5 (no drift), LUE: 5 (no drift), RLE: 5 (no drift), LLE: 5 (no drift) Eye Response: (4) open spontaneously Motor Response: (6) obeys commands Verbal Response: (5) oriented [place] Total: 15 Psychiatric exam: Present: normal affect, normal mood Course Vital Signs 02/14/19 02/14/19 02/14/19 17:17 18:15 18:30 Temperature 97.9 F Pulse Rate 91 50 L 52 L Respiratory 18 18 16 Rate Blood Pressure 166/81 142/84 142/84 O2 Sat by Pulse 97 98 99 Oximetry 02/14/19 02/14/19 18:45 19:00 Temperature Pulse Rate 53 L Respiratory 16 Rate Blood Pressure 158/78 158/78 O2 Sat by Pulse 98 Oximetry EKG Findings - EKG Comments: EKG Findings:: Sinus bradycardia, ventricular rate 54, WI interval 194, QRS duration 90, QTc 443 Medical Decision Making - Medical Decision Making 78-year-old female presents to the emergency department for a chief complaint of sudden onset dizziness lasting 3 minutes and then completely resolving. No other complaints at this time. Patient has well appearing, reading a book in the emergency department. Patient states the dizziness worsened with head movements and the room was spinning. EKG unremarkable. CBC CMP unremarkable. Creatinine 1.22, patient given fluids and educated on hydration therapy. CT shows cervical atrophy and chronic small vessel ischemia without any intracranial acute abnormality. Chest x-ray shows no acute findings. Troponin is negative. On reevaluation patient is still asymptomatic, feeling ready to go home. Patient likely experienced symptoms related to peripheral vertigo. Patient will follow up with primary care in 1-2 days. She'll return here if she has any worsening symptoms. - Lab Data Result diagrams: 02/14/19 18:02 02/14/19 18:02 Lab Results 02/14/19 02/14/19 02/14/19 Range/Units 18:02 18: 18:02 WBC 5.5 (3.8-10.6) k/uL RBC 4.53 (3.80-5.40) m/uL Hgb 13.4 (11.4-16.0) gm/dL Hct 43.0 (34.0-46.0) % MCV 94.9 (80.0-100.0) fL MCH 29.6 (25.0-35.0) pg MCHC 31.2 (31.0-37.0) g/dL RDW 13.5 (11.5-15.5) % Plt Count 234 (150-450) k/uL Neutrophils % 55 % Lymphocytes % 35 % Monocytes % 5 % Eosinophils % 3 % Basophils % 0 % Neutrophils # 3.0 (1.3-7.7) k/uL Lymphocytes # 1.9 (1.0-4.8) k/uL Monocytes # 0.3 (0-1.0) k/uL Eosinophils # 0.2 (0-0.7) k/uL Basophils # 0.0 (0-0.2) k/uL PT 10.8 (9.0-12.0) sec INR 1.0 (<1.2) APTT 26.8 (22.0-30.0) sec Sodium 139 (137-145) mmol/L Potassium 4.1 (3.5-5.1) mmol/L Chloride 108 H (98-107) mmol/L Carbon Dioxide 24 (22-30) mmol/L Anion Gap 7 mmol/L BUN 21 H (7-17) mg/dL Creatinine 1.22 H (0.52-1.04) mg/dL Est GFR (CKD-EPI)AfAm 49 (>60 ml/min/1.73 sqM) Est GFR (CKD-EPI)NonAf 43 (>60 ml/min/1.73 sqM) Glucose 90 (74-99) mg/dL Calcium 9.5 (8.4-10.2) mg/dL Magnesium 1.9 (1.6-2.3) mg/dL Total Bilirubin 0.5 (0.2-1.3) mg/dL AST 20 (14-36) U/L ALT 21 (9-52) U/L Alkaline Phosphatase 66 (38-126) U/L Troponin I (0.000-0.034) ng/mL Total Protein 6.6 (6.3-8.2) g/dL Albumin 4.0 (3.5-5.0) g/dL 02/14/19 Range/Units 18:02 WBC (3.8-10.6) k/uL RBC (3.80-5.40) m/uL Hgb (11.4-16.0) gm/dL Hct (34.0-46.0) % MCV (80.0-100.0) fL MCH (25.0-35.0) pg MCHC (31.0-37.0) g/dL RDW (11.5-15.5) % Plt Count (150-450) k/uL Neutrophils % % Lymphocytes % % Monocytes % % Eosinophils % % Basophils % % Neutrophils # (1.3-7.7) k/uL Lymphocytes # (1.0-4.8) k/uL Monocytes # (0-1.0) k/uL Eosinophils # (0-0.7) k/uL Basophils # (0-0.2) k/uL PT (9.0-12.0) sec INR (<1.2) APTT (22.0-30.0) sec Sodium (137-145) mmol/L Potassium (3.5-5.1) mmol/L Chloride (98-107) mmol/L Carbon Dioxide (22-30) mmol/L Anion Gap mmol/L BUN (7-17) mg/dL Creatinine (0.52-1.04) mg/dL Est GFR (CKD-EPI)AfAm (>60 ml/min/1.73 sqM) Est GFR (CKD-EPI)NonAf (>60 ml/min/1.73 sqM) Glucose (74-99) mg/dL Calcium (8.4-10.2) mg/dL Magnesium (1.6-2.3) mg/dL Total Bilirubin (0.2-1.3) mg/dL AST (14-36) U/L ALT (9-52) U/L Alkaline Phosphatase (38-126) U/L Troponin I <0.012 (0.000-0.034) ng/mL Total Protein (6.3-8.2) g/dL Albumin (3.5-5.0) g/dL Disposition Clinical Impression: Vertigo Disposition: HOME SELF-CARE Condition: Good Instructions (If sedation given, give patient instructions): Vertigo (ED) Additional Instructions: Please follow-up with your primary care provider at your scheduled appointment in 2 days. If you have any worsening symptoms return here to the emergency department. Is patient prescribed a controlled substance at d/c from ED?: No Referrals: Sky Uribe III, MD [Primary Care Provider] - 1-2 days Time of Disposition: 19:36
[2019-02-14 18:32] LABS: Calcium 9.5 mg/dL (8.4-10.2); Magnesium 1.9 mg/dL (1.6-2.3); Potassium 4.1 mmol/L (3.5-5.1); Total Bilirubin 0.5 mg/dL (0.2-1.3); Total Protein 6.6 g/dL (6.3-8.2)
[2019-02-14 18:35] LABS: Partial Thromboplastin Time 26.8 sec (22.0-30.0); Prothrombin Time 10.8 sec (9.0-12.0)
--- NOTE | 2019-02-14 19:01 | CT ---
EXAMINATION TYPE: CT brain wo con DATE OF EXAM: 02/14/2019 COMPARISON: None HISTORY: neuro deficits CT DLP: 1119.4 mGycm Automated exposure control for dose reduction was used. FINDINGS: There is cerebral cortical atrophy. There is patchy hypodensity in the periventricular white matter. There is no mass effect nor midline shift. There is no sign of intracranial hemorrhage. Calvarium is intact. IMPRESSION: CEREBRAL ATROPHY AND CHRONIC SMALL VESSEL ISCHEMIA. NO ACUTE INTRACRANIAL ABNORMALITY.
--- NOTE | 2019-02-14 19:08 | XR ---
EXAMINATION TYPE: XR chest 2V DATE OF EXAM: 02/14/2019 COMPARISON: NONE HISTORY: Dizziness TECHNIQUE: Frontal and lateral views of the chest are obtained. FINDINGS: There is no heart failure nor confluent pneumonic infiltrate. There is some triangular-sha ped increased density at the left lung apex consistent with scarring. Costophrenic angles are clear. There is osteopenia. IMPRESSION: No acute lung disease. Left upper lobe scarring unchanged compared to January 15, 2016. Nor mal heart.
[2019-02-14 19:19] VITALS: BP 158/78; PULSE 53; RESP 16
== END 2019-02-14 19:54 | disposition home or self-care (01) ==
LOC: EC 17:12
DX: R42 Dizziness and giddiness (principal); G31.9 Degenerative disease of nervous system, unspecified; I99.8 Other disorder of circulatory system; E07.9 Disorder of thyroid, unspecified; Z85.3 Personal history of malignant neoplasm of breast; Z92.21 Personal history of antineoplastic chemotherapy; Z87.891 Personal history of nicotine dependence; Z79.890 Hormone replacement therapy; Z79.899 Other long term (current) drug therapy; Z88.8 Allergy status to other drugs, medicaments and biological substances
CPT/HCPCS: 36415; 70450; 71046; 80053; 83735; 84484; 85025; 85610; 85730; 93005; 96360; 99284

== ENCOUNTER → 2019-02-27 | Outpatient (CLI) | payer MEDICARE, BC ==
--- NOTE | 2019-02-27 18:13 | US ---
EXAMINATION TYPE: US carotid duplex BILAT DATE OF EXAM: 02/27/2019 COMPARISON: US 2014 CLINICAL HISTORY: 78-year-old female R42 Dizziness and giddiness; E78.2 mixed hyperlipidemia. Hyperli pidemia. TECHNIQUE: Carotid duplex ultrasound examination. Indirect Doppler criteria was utilized. FINDINGS: EXAM MEASUREMENTS: RIGHT: Peak Systolic Velocity (PSV) cm/sec ----- Right CCA: 77.3 ----- Right ICA: 74.7 ----- Right ECA: 96.3 ICA/CCA ratio: 1.0 RIGHT: End Diastole cm/sec ----- Right CCA: 13.6 ----- Right ICA: 0.0 ----- Right ECA: 9.5 LEFT: Peak Systolic Velocity (PSV) cm/sec ----- Left CCA: 60.2 ----- Left ICA: 80.9 ----- Left ECA: 69.4 ICA/CCA ratio: 1.3 LEFT: End Diastole cm/sec ----- Left CCA: 11.1 ----- Left ICA: 23.7 ----- Left ECA: 0.0 VERTEBRALS (direction of flow): Right Vertebral: Antegrade Left Vertebral: Antegrade Rhythm: Normal Civil Technician notes: Intimal thickening seen bilateral carotid arteries. Minimal echogenic plaque seen bilateral carotid bulbs. No elevated velocities obtained. No significant stenosis visualized. IMPRESSION: No hemodynamically significant ICA stenosis on either side. Criteria for Assigning % of Stenosis / Diameter reduction (Estimation based on the indirect measurements of the internal carotid artery velocities (ICA PSV). 1. Normal (no stenosis)=ICA PSV < 125 cm/s: ratio < 2.0: ICA EDV<40 cm/s. 2. Less than 50% stenosis=ICA PSV < 125 cm/s: ratio < 2.0: ICA EDV<40 cm/s. 3. 50 to 69% stenosis=ICA PSV of 125 to 230 cm/s: ration 2.0 ? 4.0: ICA EDV 40-100 cm/s. 4. Greater than 70% stenosis to near occlusion= ICA PSV > 230 cm/s: ratio > 4.0: ICA EDV > 100 cm/s. 5. Near occlusion= ICA PSV velocities may be low or undetectable: variable ratio and ICA EDV. 6. Total occlusion=unable to detect flow.
== END | disposition home or self-care (01) ==
LOC: RADUSWWP 13:33
PROVIDERS: ATTEND Physician Assistant Medical
DX: R42 Dizziness and giddiness (principal); E78.2 Mixed hyperlipidemia
CPT/HCPCS: 93880

== ENCOUNTER 2019-03-28 09:18 | Day surgery (SDC) | payer MEDICARE, BC ==
[2019-03-23 15:03] VITALS: BMI 28.6
[~2019-03-28 09:18] MED LIST changes: -ACETAMINOPHEN TAB 500 MG TAB PO ONE; -DEXAMETHASONE SOD PHOSPHATE 10 MG/ML 1 ML VIAL IV ONE; +LACTATED RINGERS 1,000 ML IV SCH; -LIDOCAINE 1% 20 ML VIAL (10MG/ML) FOR IV START INTRADERMA PRN; -MELOXICAM 7.5 MG TAB PO ONE; -MIDAZOLAM 2 MG/2 ML VIAL IV PRN; -TRANEXAMIC ACID 1,000 MG in SODIUM CHLORIDE 0.9% 50 ML IVPB ONE; -ceFAZolin IN SWFI 2 GM/20 ML SYRINGE IVP ONE; -fentaNYL (PF) 50 MCG/ML 2 ML AMP IV PRN
[2019-03-28 10:34] VITALS: TEMP 97
[2019-03-28] MEDS ORDERED: LIDOCAINE 1% 20 ML VIAL (10MG/ML) FOR IV START INTRADERMA ONE (10:43)
[2019-03-28] MEDS ORDERED: PROPOFOL 10 MG/ML 20 ML VIAL IV ONE (12:15)
--- NOTE | 2019-03-28 12:18 | P.GSHP ---
History of Present Illness H&P Date: 03/28/19 Chief Complaint: Change in bowel habits Patient here today with complaints of change in bowel habits. Frequent episodes of diarrhea and occasional episodes of incontinence. No rectal bleeding. Last colonoscopy 10-15 years ago. That was normal. Past Medical History Past Medical History: Cancer, GERD/Reflux, Hyperlipidemia, Mitral Valve Prolapse (MVP), Rheumatoid Arthritis (RA), Thyroid Disorder Additional Past Medical History / Comment(s): Breast Ca 1969-tx w/ chemo & radiation. History of Any Multi-Drug Resistant Organisms: None Reported Past Surgical History: Breast Surgery, Cholecystectomy, Joint Replacement, Orthopedic Surgery Additional Past Surgical History / Comment(s): daniel mastectomy, partial thyroidectomy, RT knee arthroscopy. EXC BILAT CATARCT. LT NOLAN, COLONOSCOPY Past Anesthesia/Blood Transfusion Reactions: Previous Problems w/ Anesthesia Additional Past Anesthesia/Blood Transfusion Reaction / Comment(s): wakes up during OR - DURING PORT INSERTION; DURING CATARACT SURG WAS "BABBLING." Past Psychological History: Depression Smoking Status: Former smoker Past Alcohol Use History: Occasional Additional Past Alcohol Use History / Comment(s): quit smoking AGE 35, started as a teenager, WAS OCC USER. Past Drug Use History: None Reported - Past Family History Mother Family Medical History: Cancer Additional Family Medical History / Comment(s): Breast. Brother(s) Family Medical History: Cancer Medications and Allergies Home Medications Medication Instructions Recorded Confirmed Type Ascorbic Acid [Vitamin C] 500 mg PO DAILY 08/03/16 03/23/19 History Calcium Carbonate/Vitamin D3 1 tab PO DAILY 08/03/16 03/23/19 History [Calcium 600-Vit D3 200 Tablet] Multivitamins, Thera [Multivitamin 1 tab PO DAILY 08/03/16 03/23/19 History (formulary)] Cetirizine HCl [Zyrtec] 10 mg PO DAILY 01/27/18 03/23/19 History Cholecalciferol [Vitamin D3 (25 2,000 unit PO DAILY 01/27/18 03/23/19 History Mcg = 1000 Iu)] Garlic 1 tab PO DAILY 01/27/18 03/23/19 History Glucosam/Bj-Msm1/C/Black/Bosw 1 tab PO DAILY 01/27/18 03/23/19 History [Glucosamine-Chondroitin Tablet] [place]-3 Fatty Acids [[place]-3] 1,000 mg PO DAILY 01/27/18 03/23/19 History Fluticasone Nasal [place] [Flonase 2 spr EA NOSTRIL DAILY 06/01/18 03/23/19 History Nasal [place]] Focus Macular Vitamin 1 tab PO DAILY 06/01/18 03/23/19 History Levothyroxine Sodium [Synthroid] 88 mcg PO DAILY 06/06/18 03/23/19 History Escitalopram [Lexapro] 10 mg PO DAILY 03/23/19 03/23/19 History Ranitidine HCl [Zantac] 150 mg PO HS 03/23/19 03/23/19 History traMADol HCL [Ultram] 50 mg PO Q6HR PRN 03/23/19 03/23/19 History Allergies Allergy/AdvReac Type Severity Reaction Status Date / Time anastrozole [From Arimidex] Allergy Rash/Hives Verified 03/28/19 10:32 metoclopramide HCl Allergy Hallucinati Verified 03/23/19 14:48 [From Reglan] ons Surgical - Exam Vital Signs Temp Pulse Resp BP Pulse Ox 97 F L 72 18 122/60 95 03/28/19 10:33 03/28/19 10:33 03/28/19 10:33 03/28/19 10:33 03/28/19 10:33 Physical exam: General: Well-developed, well-nourished HEENT: Normocephalic, sclerae nonicteric Abdomen: Nontender, nondistended Extremities: No edema Neuro: Alert and oriented Assessment and Plan (1) Colon cancer screening Narrative/Plan: Will proceed with colonoscopy Current Visit: Yes Status: Acute Code(s): Z12.11 - ENCOUNTER FOR SCREENING FOR MALIGNANT NEOPLASM OF COLON SNOMED Code(s): 950934391
--- NOTE | 2019-03-28 12:55 | P.PCN ---
Date of Procedure: 03/28/19 Procedure(s) Performed: PREOPERATIVE DIAGNOSIS: Change in bowel habits, chronic diarrhea POSTOPERATIVE DIAGNOSIS: Rectal polyp, transverse colon polyp PROCEDURE: Colonoscopy with snare polypectomy and biopsy ANESTHESIA: MAC SURGEON: Moisés Talbot M.D. SPECIMENS: Antrum colon, transverse colon polyp, rectal polyp ENDOSCOPIC PROCEDURE: The patient was placed on the endoscopy table in the left decubitus position. The Olympus colonoscope was inserted into the anus and passed under direct visualization to the base of the cecum. The appendiceal orifice was visualized. From that point the scope was slowly withdrawn inspecting all surfaces carefully. There were no neoplastic inflammatory or polypoid lesions throughout the cecum or ascending colon. In the mid transverse colon a small polyp was identified and removed using the cold biopsy forceps. The remainder of the transverse descending and sigmoid colon appeared normal. In the rectum a sessile polyp was identified and removed using the snare with cautery technique. I did take random biopsies throughout the colon to evaluate for microscopic colitis. Digital rectal examination was normal. There was no visible diverticulosis seen. The patient was taken to the recovery room in stable condition per anesthesia guidelines. RECOMMENDATIONS: Await biopsy results. Increase probiotics. Trial of Questran.
[2019-03-28 13:08] VITALS: RESP 16
[2019-03-28 13:26] VITALS: BP 150/64; PULSE 60
== END 2019-03-28 13:41 | disposition home or self-care (01) ==
LOC: ORWHC2ENDO 09:18
PROVIDERS: ATTEND Surgery
DX: D12.3 Benign neoplasm of transverse colon (principal); K62.1 Rectal polyp; K52.9 Noninfective gastroenteritis and colitis, unspecified; K21.9 Gastro-esophageal reflux disease without esophagitis; E78.5 Hyperlipidemia, unspecified; I34.1 Nonrheumatic mitral (valve) prolapse; M06.9 Rheumatoid arthritis, unspecified; F32.9 Major depressive disorder, single episode, unspecified; M19.90 Unspecified osteoarthritis, unspecified site; E89.0 Postprocedural hypothyroidism; N28.9 Disorder of kidney and ureter, unspecified; Z79.899 Other long term (current) drug therapy; Z85.3 Personal history of malignant neoplasm of breast; Z87.891 Personal history of nicotine dependence; Z88.8 Allergy status to other drugs, medicaments and biological substances; Z79.890 Hormone replacement therapy; Z90.13 Acquired absence of bilateral breasts and nipples
CPT/HCPCS: 88305; 45385; 45380; J2704

== ENCOUNTER → 2019-09-11 | Outpatient (CLI) | payer MEDICARE, BC ==
--- NOTE | 2019-09-11 15:54 | NM ---
EXAMINATION TYPE: NM bone scan whole body DATE OF EXAM: 09/11/2019 COMPARISON: Prior bone scan dated 01/17/2016 HISTORY: Breast cancer Delayed whole-body scanning was performed following the injection of 23.9 mCi Tc 99m MDP. Images acq uired 3.5 hours post injection. FINDINGS: There is mild uptake within the shoulders, the, knees, spine as on prior exam. Soft tissue uptake is normal. No area of increased or decreased uptake to suggest metastatic disease. Photopenic area in th e left hip consistent with postop change. Uptake in the maxilla and mandible is likely due to periodo ntal disease. There is mild spinal curvature. IMPRESSION: Essentially stable exam. No suspicious abnormal uptake. Postop change to the left hip, correlate.
== END | disposition home or self-care (01) ==
LOC: RADNMMAIN 10:23
PROVIDERS: ATTEND Internal Medicine Hematology & Oncology
DX: M54.9 Dorsalgia, unspecified (principal); C50.919 Malignant neoplasm of unspecified site of unspecified female breast
CPT/HCPCS: 78306; A9503

== ENCOUNTER 2020-01-01 21:21 | Emergency (ER) | payer MEDICARE, BC ==
[2020-01-01] MEDS ORDERED: MORPHINE SULFATE 4 MG/ML SYRINGE IVP STA (21:32)
[2020-01-01 22:07] LABS: Albumin 4.4 g/dL (3.5-5.0); Potassium 3.9 mmol/L (3.5-5.1); Total Bilirubin 0.4 mg/dL (0.2-1.3); Total Protein 7.3 g/dL (6.3-8.2)
--- NOTE | 2020-01-01 22:09 | XR ---
EXAMINATION TYPE: XR Hip Complete LT DATE OF EXAM: 01/01/2020 COMPARISON: 06/06/2018 HISTORY: Hip pain TECHNIQUE: 2 views FINDINGS: there is left hip prosthesis. Components are in anatomic position. Sacroiliac joint appears normal. I see no fracture. IMPRESSION: Negative left hip exam. No change.
[2020-01-01 22:17] LABS: HCT 44.8 % (34.0-46.0); HGB 14.8 gm/dL (11.4-16.0); MCH 31.1 pg (25.0-35.0); MCHC 33.1 g/dL (31.0-37.0); MCV 94.1 fL (80.0-100.0); Mean Platelet Volume 7.5; Platelet Count 193 k/uL (150-450); RBC 4.76 m/uL (3.80-5.40); RDW 12.7 % (11.5-15.5); WBC 4.8 k/uL (3.8-10.6)
[2020-01-01 22:40] LABS: Eosinophils # (M) 0.05 k/uL (0-0.7); Lymphocytes # (M) 1.87 k/uL (1.0-4.8); Monocytes # (M) 0.29 k/uL (0-1.0); Neutrophils # (M) 2.59 k/uL (1.3-7.7); Neutrophils % (M) 54 %; Nucleated Red Blood Cells 0 /100 WBC (0-0); Total Cells Counted 100
--- NOTE | 2020-01-01 22:47 | US ---
EXAMINATION TYPE: US venous doppler duplex LE LT DATE OF EXAM: 01/01/2020 10:33 PM COMPARISON: NONE CLINICAL HISTORY: pain, swelling. Pain left lateral leg intermittently, worse x 1 day. Swelling. Josefina ent not taking blood thinners. No hx of DVT. SIDE PERFORMED: Left TECHNIQUE: The lower extremity deep venous system is examined utilizing real time linear array sonog fitz with graded compression, doppler sonography and color-flow sonography. VESSELS IMAGED: External Iliac Vein (EIV) Common Femoral Vein Deep Femoral Vein Greater Saphenous Vein * Femoral Vein Popliteal Vein Small Saphenous Vein * Proximal Calf Veins (* superficial vessels) Left Leg: No evidence of DVT in veins imaged at this time from prox calf veins to EIV. IMPRESSION: Negative exam. No evidence of deep vein thrombosis in the left leg.
--- NOTE | 2020-01-01 22:55 | ED ---
Lower Extremity Injury HPI - General Chief Complaint: Extremity Injury, Lower Stated Complaint: leg pain Time Seen by Provider: 01/01/20 21:29 Source: patient, EMS Mode of arrival: EMS Limitations: no limitations - History of Present Illness Initial Comments: Cynthia is a pleasant 79yo female who presents to the ER today via ambulance for evaluation of left leg pain. Patient reports that she had a left hip replacement and since that time she suffered from chronic left leg pain. Patient reports that over the past couple of weeks the pain seems to be worsening. Patient reports that she recently got a recliner and has noticed that whenever she attempts to get out of the recliner she has significant pain in the leg. Anus primarily in the calf. Patient reports that the pain becomes so severe she can't bear weight and so she has been crawling around. Patient reports that today she visited a friend and was sitting in the recliner at a friend's house, when she got up to leave the house to have significant pain so she had to crawl from the front porch to her car. Upon returning home patient's pain persisted so she called ambulance for transport to the hospital. Patient reports she does have a walker at home she has used in the past but hasn't been using lately. She has not seen physical therapy. Patient denies any falls or injury. Denies any history of peripheral neuropathy. - Related Data Home Medications Medication Instructions Recorded Confirmed Ascorbic Acid [Vitamin C] 500 mg PO HS 08/03/16 01/01/20 Multivitamins, Thera [Multivitamin 1 tab PO DAILY 08/03/16 01/01/20 (formulary)] Cholecalciferol [Vitamin D3 (25 2,000 unit PO HS 01/27/18 01/01/20 Mcg = 1000 Iu)] Glucosam/Bj-Msm1/C/Black/Bosw 1 tab PO DAILY 01/27/18 01/01/20 [Glucosamine-Chondroitin Tablet] Fluticasone Nasal [place] [Flonase 2 spr EA NOSTRIL DAILY PRN 06/01/18 01/01/20 Nasal [place]] Ranitidine HCl [Zantac] 150 mg PO HS 03/23/19 01/01/20 Levothyroxine Sodium [Synthroid] 100 mcg PO DAILY 01/01/20 01/01/20 Vit C/E/Zn/Coppr/Lutein/Zeaxan 1 cap PO DAILY 01/01/20 01/01/20 [Preservision Areds 2 Softgel] Allergies Allergy/AdvReac Type Severity Reaction Status Date / Time anastrozole [From Arimidex] Allergy Rash/Hives Verified 01/01/20 21:27 metoclopramide HCl Allergy Hallucinati Verified 01/01/20 21:27 [From Reglan] ons Review of Systems ROS Statement: Those systems with pertinent positive or pertinent negative responses have been documented in the HPI. ROS Other: All systems not noted in ROS Statement are negative. Past Medical History Past Medical History: Cancer, Eye Disorder, GERD/Reflux, Hyperlipidemia, Mitral Valve Prolapse (MVP), Rheumatoid Arthritis (RA), Thyroid Disorder Additional Past Medical History / Comment(s): Breast Ca 1969-tx w/ chemo & radiation. RT EYE CATARACT. History of Any Multi-Drug Resistant Organisms: None Reported Past Surgical History: Breast Surgery, Cholecystectomy, Orthopedic Surgery Additional Past Surgical History / Comment(s): daniel mastectomy, partial thyroidectomy, RT knee arthroscopy. EXC LT EYE CATARCT. Past Anesthesia/Blood Transfusion Reactions: Previous Problems w/ Anesthesia Additional Past Anesthesia/Blood Transfusion Reaction / Comment(s): wakes up during OR - DURING PORT INSERTION; DURING CATARACT SURG WAS "BABBLING." Past Psychological History: No Psychological Hx Reported Smoking Status: Former smoker Past Alcohol Use History: Occasional Past Drug Use History: None Reported - Past Family History Mother Family Medical History: Cancer Additional Family Medical History / Comment(s): Breast. Brother(s) Family Medical History: Cancer General Exam - General Exam Comments Initial Comments: Physical Exam GENERAL: Patient is well-developed and well-nourished. Patient is nontoxic and well- hydrated and is in no distress. HENT: Normocephalic, Atraumatic. EYES: PERRL, EOMI PULMONARY: Unlabored respirations. No audible rales rhonchi or wheezing was noted. CARDIOVASCULAR: There is a regular rate and rhythm without any murmurs gallops or rubs. Strong DP PT pulses bilaterally ABDOMEN: Soft and nontender with normal bowel sounds. SKIN: Skin is clear with no lesions or rashes and otherwise unremarkable. : Deferred NEUROLOGIC: Patient is alert and oriented x3. Moving all extremities spontaneously MUSCULOSKELETAL: Normal extremities with adequate strength and full range of motion. No lower extremity swelling or edema. No calf tenderness. All plantar flexion dorsiflexion of the ankle normal range of motion of the knee Extremity is warm and well perfused with no signs of injury PSYCHIATRIC: Normal psychiatric evaluation. Limitations: no limitations Course Vital Signs 01/01/20 01/02/20 21:22 04:05 Temperature 97.2 F L 97.7 F Pulse Rate 64 77 Respiratory 20 18 Rate Blood Pressure 149/78 131/85 O2 Sat by Pulse 100 98 Oximetry Medical Decision Making - Medical Decision Making The patient was seen and evaluated history is obtained from patient 79-year-old female with a history of a hip replacement and chronic left leg pain since then. Patient's pain is acutely worsening she is now unable to ambulate. Patient reports she had to crawl from her friends for a yard to her own car and upon going home and get out of her car so called 911 for transport to the hospital. Patient denies any injuries. X-rays and ultrasound for DVT were ordered and were resulted with no acute injuries, no signs of DVT Labs resulted with no acute electrolyte abnormalities no elevation of creatinine kinase These results were discussed with patient who expresses relief but expresses distress over not having formal diagnosis, patient attempted to ambulate to the restroom and was unable to do so secondary to pain. Patient lowered herself to her knees and had to be assisted back to bed to use a bedpan. This time I offered the patient placement in observation for evaluation by physical therapy which patient is considering. Patient concerned that pain is isolated to the simons therefore tib-fib x-ray was ordered and results showed no acute findings. After resting in the bed for a number of hours patient reported she was feeling much better was able to ambulate to the restroom. At this time do not feel there is any indication for admission to the hospital patient is able to ambulate, she does have a walker at home she does have close outpatient follow- up and she can be referred physical therapy on an outpatient basis. At this time patient agreeable to plan for discharge home. - Lab Data Result diagrams: 01/01/20 21:44 01/01/20 21:44 Lab Results 01/01/20 01/01/20 01/01/20 Range/Units 21:44 21:44 21:44 WBC 4.8 (3.8-10.6) k/uL RBC 4.76 (3.80-5.40) m/uL Hgb 14.8 (11.4-16.0) gm/dL Hct 44.8 (34.0-46.0) % MCV 94.1 (80.0-100.0) fL MCH 31.1 (25.0-35.0) pg MCHC 33.1 (31.0-37.0) g/dL RDW 12.7 (11.5-15.5) % Plt Count 193 (150-450) k/uL Neutrophils % (Manual) 54 % Lymphocytes % (Manual) 39 % Monocytes % (Manual) 6 % Eosinophils % (Manual) 1 % Neutrophils # (Manual) 2.59 (1.3-7.7) k/uL Lymphocytes # (Manual) 1.87 (1.0-4.8) k/uL Monocytes # (Manual) 0.29 (0-1.0) k/uL Eosinophils # (Manual) 0.05 (0-0.7) k/uL Nucleated RBCs 0 (0-0) /100 WBC Manual Slide Review Performed Sodium 137 (137-145) mmol/L Potassium 3.9 (3.5-5.1) mmol/L Chloride 103 (98-107) mmol/L Carbon Dioxide 24 (22-30) mmol/L Anion Gap 10 mmol/L BUN 24 H (7-17) mg/dL Creatinine 1.04 (0.52-1.04) mg/dL Est GFR (CKD-EPI)AfAm 59 (>60 ml/min/1.73 sqM) Est GFR (CKD-EPI)NonAf 51 (>60 ml/min/1.73 sqM) Glucose 101 H (74-99) mg/dL Plasma Lactic Acid [place] 2.0 (0.7-2.0) mmol/L Calcium 10.0 (8.4-10.2) mg/dL Magnesium 2.0 (1.6-2.3) mg/dL Total Bilirubin 0.4 (0.2-1.3) mg/dL AST 25 (14-36) U/L ALT 15 (4-34) U/L Alkaline Phosphatase 87 (38-126) U/L Creatine Kinase 27 L (30-135) U/L Total Protein 7.3 (6.3-8.2) g/dL Albumin 4.4 (3.5-5.0) g/dL Disposition Clinical Impression: Leg pain, left Disposition: HOME SELF-CARE Condition: Stable Additional Instructions: Avoid resting in your recliner if it worsens your leg pain Contact your orthopedic surgeon and primary care doctor for follow up Discuss possible physical therapy with primary care doctor Use your walker as needed Return to the ER for any worsening or development of new or concerning symptoms Is patient prescribed a controlled substance at d/c from ED?: No Referrals: Sky Uribe III, MD [Primary Care Provider] - 1-2 days
--- NOTE | 2020-01-02 01:00 | XR ---
EXAMINATION TYPE: XR tibia fibula LT DATE OF EXAM: 01/02/2020 COMPARISON: NONE HISTORY: Pain TECHNIQUE: 2 views FINDINGS: The tibia and fibula appear intact. I see no fracture nor dislocation. There is minor spurr ing on the anterior patella. Ankle mortise is anatomic. IMPRESSION: Minimal degenerative changes at the knee joint. No fracture seen.
[2020-01-02 04:06] VITALS: BP 131/85; PULSE 77; RESP 18; TEMP 97.7
== END 2020-01-02 04:17 | disposition home or self-care (01) ==
LOC: EC 21:21
DX: M79.605 Pain in left leg (principal); G89.29 Other chronic pain; K21.9 Gastro-esophageal reflux disease without esophagitis; M06.9 Rheumatoid arthritis, unspecified; E07.9 Disorder of thyroid, unspecified; Z79.890 Hormone replacement therapy; Z79.899 Other long term (current) drug therapy; Z88.8 Allergy status to other drugs, medicaments and biological substances; Z85.3 Personal history of malignant neoplasm of breast; Z92.21 Personal history of antineoplastic chemotherapy; Z96.642 Presence of left artificial hip joint; Z92.3 Personal history of irradiation; Z90.13 Acquired absence of bilateral breasts and nipples; Z90.89 Acquired absence of other organs; Z87.891 Personal history of nicotine dependence
CPT/HCPCS: 36415; 73502; 80053; 82550; 83605; 83735; 85025; 99284

== ENCOUNTER → 2023-06-23 | Outpatient (CLI) | payer MEDICARE, BC ==
[2023-06-23 16:05] LABS: African American GFR (CKD) 40 (>60 ml/min/1.73 sqM); Anion Gap 8 mmol/L; Blood Urea Nitrogen 33 mg/dL (7-17); Calcium 9.6 mg/dL (8.4-10.2); Carbon Dioxide 24 mmol/L (22-30); Chloride 105 mmol/L (98-107); Glucose 96 mg/dL (74-99); Non-African American GFR(CKD) 35 (>60 ml/min/1.73 sqM); Potassium 5.2 mmol/L (3.5-5.1); Sodium 137 mmol/L (137-145)
[2023-06-23 16:13] LABS: NT-Pro-B-Type Natriuretic Pept 9610 pg/mL
[2023-06-23 20:37] LABS: HCT 43.9 % (37.2-46.3); HGB 14.2 d/dL (12.0-15.0); MCH 30.9 pg (27.0-32.0); MCHC 32.3 d/dL (32.0-37.0); MCV 95.4 FL (80.0-97.0); Mean Platelet Volume 11.1 FL (9.5-12.2); NRBC Per 100 WBC 0 X 10*3/uL (0.00-0.01); Platelet Count 235 X 10*3/uL (140-440); RDW 13.8 % (11.5-14.5); WBC 6.36 X 10*3/uL (4.50-10.00)
== END | disposition home or self-care (01) ==
LOC: LABWHC1 14:52
PROVIDERS: ATTEND Internal Medicine Cardiovascular Disease
DX: R06.02 Shortness of breath (principal)
CPT/HCPCS: 36415; 80048; 83880; 84443; 85027

== ENCOUNTER 2023-12-22 17:42 | Inpatient (IN) | payer MEDICARE, BC ==
--- NOTE | 2023-12-22 18:31 | ED ---
Animal Bite HPI - General Source: RN/MD Mode of arrival: EMS Limitations: no limitations <Lilibeth Ernandez - Last Filed: 12/22/23 18:57> <Roger Razo - Last Filed: 12/23/23 23:30> - General Chief Complaint: Animal Bite Stated Complaint: L Hand/Forearm Time Seen by Provider: 12/22/23 17:58 - History of Present Illness Initial Comments: Patient is an 83-year-old female presented to ER with a chief complaint of animal bite. Patient states she was trying to get her dog to take medication and her dog bit her on her left hand. She states this happened yesterday. Patient states this morning she had increased in pain, redness and swelling to her left forearm and hand. Patient states is extremely painful. She does report that the animal is up-to-date on vaccinations. She states that her dog bit her about 2 weeks ago when she was treated with antibiotics outpatient. Patient denies any other injuries, fevers, chills, night sweats, chest pain, shortness of breath, abdominal pain, peripheral edema. (Lilibeth Ernandez) - Related Data Home Medications Medication Instructions Recorded Confirmed Levothyroxine Sodium [Synthroid] 100 mcg PO DAILY 01/01/20 12/22/23 Amoxic-Pot Clav 875-125Mg 1 tab PO DIRECTED 12/22/23 12/22/23 [Augmentin 875-125] Apixaban [Eliquis] 5 mg PO BID 12/22/23 12/22/23 Cetirizine HCl [Zyrtec] 10 mg PO HS 12/22/23 12/22/23 Furosemide [Lasix] 40 mg PO DAILY 12/22/23 12/22/23 Metoprolol Succinate (ER) [Toprol 25 mg PO DAILY 12/22/23 12/22/23 Xl] Spironolactone [Aldactone] 12.5 mg PO DAILY 12/22/23 12/22/23 lisinopriL [Zestril] 2.5 mg PO DAILY 12/22/23 12/22/23 traMADol HCL 50 mg PO HS 12/22/23 12/22/23 traZODone HCL [Desyrel] 50 mg PO HS 12/22/23 12/22/23 Allergies Allergy/AdvReac Type Severity Reaction Status Date / Time anastrozole [From Arimidex] Allergy Rash/Hives Verified 12/22/23 20:32 metoclopramide HCl Allergy Hallucinati Verified 12/22/23 20:32 [From Reglan] ons Review of Systems ROS Other: All systems not noted in ROS Statement are negative. <Lilibeth Ernandez - Last Filed: 12/22/23 18:57> ROS Other: All systems not noted in ROS Statement are negative. <Roger Razo - Last Filed: 12/23/23 23:30> ROS Statement: Those systems with pertinent positive or pertinent negative responses have been documented in the HPI. Past Medical History Past Medical History: Cancer, Eye Disorder, GERD/Reflux, Hyperlipidemia, Mitral Valve Prolapse (MVP), Rheumatoid Arthritis (RA), Thyroid Disorder Additional Past Medical History / Comment(s): Breast Ca 1969-tx w/ chemo & radiation. RT EYE CATARACT. History of Any Multi-Drug Resistant Organisms: None Reported Past Surgical History: Breast Surgery, Cholecystectomy, Orthopedic Surgery Additional Past Surgical History / Comment(s): daniel mastectomy, partial thyroidectomy, RT knee arthroscopy. EXC LT EYE CATARCT. Past Anesthesia/Blood Transfusion Reactions: Previous Problems w/ Anesthesia Additional Past Anesthesia/Blood Transfusion Reaction / Comment(s): wakes up during OR - DURING PORT INSERTION; DURING CATARACT SURG WAS "BABBLING." Past Psychological History: No Psychological Hx Reported Smoking Status: Former smoker Past Alcohol Use History: Occasional Past Drug Use History: None Reported - Past Family History Mother Family Medical History: Cancer Additional Family Medical History / Comment(s): Breast. Brother(s) Family Medical History: Cancer <Lilibeth Ernandez - Last Filed: 12/22/23 18:57> General Exam Limitations: no limitations General appearance: alert, in no apparent distress Head exam: Present: atraumatic, normocephalic, normal inspection Respiratory exam: Present: normal lung sounds bilaterally. Absent: respiratory distress, wheezes, rales, rhonchi, stridor Cardiovascular Exam: Present: regular rate, normal rhythm, normal heart sounds. Absent: systolic murmur, diastolic murmur, rubs, gallop, clicks Extremities exam: Present: normal inspection, full ROM, tenderness (Left upper extremity is exquisitely tender to touch. Hot to touch and erythematous. Patient has limited range of motion due to pain. 2+ right radial pulse. Compartments soft. Patient has a wound on left dorsal hand.), normal capillary refill. Absent: pedal edema, joint swelling, calf tenderness Neurological exam: Present: alert, oriented X3, CN II-XII intact Psychiatric exam: Present: normal affect, normal mood Skin exam: Present: warm, dry, intact, normal color. Absent: rash <Lilibeth Ernandez - Last Filed: 12/22/23 18:57> Course <Lilibeth Ernandez - Last Filed: 12/22/23 18:57> Vital Signs 12/22/23 12/22/23 12/22/23 17:43 19:46 20:00 Temperature 98 F 98.0 F Pulse Rate 100 86 Pulse Rate [ 62 Pulse Oximetery ] Respiratory 18 18 16 Rate Blood Pressure 129/76 164/72 O2 Sat by Pulse 98 96 94 L Oximetry 12/22/23 21:08 Temperature Pulse Rate 73 Pulse Rate [ Pulse Oximetery ] Respiratory 18 Rate Blood Pressure 119/68 O2 Sat by Pulse 96 Oximetry - Reevaluation(s) Reevaluation #1: 12/22/23 18:[address] Hill, on-call trauma surgeon, who advised to admit to medicine and she will be on consult. (Lilibeth Ernandez) Reevaluation #2: 12/22/23 18:[address] Trevizo who accepted medical management. (Lilibeth Ernandez) Medical Decision Making <Lilibeth Ernandez - Last Filed: 12/22/23 18:57> - Lab Data Result diagrams: 12/22/23 18:41 12/22/23 18:41 <Roger Razo - Last Filed: 12/23/23 23:30> - Medical Decision Making Was pt. sent in by a medical professional or institution (, PA, FURNITURE DETAILER, urgent care, hospital, or correction...) When possible be specific @ -No Did you speak to anyone other than the patient for history (EMS, parent, family, police, friend...)? What history was obtained from this source @ -No Did you review nursing and triage notes (agree or disagree)? Why? @ -I reviewed and agree with nursing and triage notes Were old charts reviewed (outside hosp., previous admission, EMS record, old EKG, old radiological studies, urgent care reports/EKG's, correction records)? Report findings @ -No old charts were reviewed Differential Diagnosis (chest pain, altered mental status, abdominal pain women, abdominal pain men, vaginal bleeding, weakness, fever, dyspnea, syncope, headache, dizziness, GI bleed, back pain, seizure, CVA, palpatations, mental health, musculoskeletal)? @ -Cellulitis, laceration, abrasion, contusion, avulsion, foreign body this li st is not meant to be all-inclusive EKG interpreted by me (3pts min.). @ -None X-rays interpreted by me (1pt min.). @ -None done CT interpreted by me (1pt min.). @ -None done U/S interpreted by me (1pt. min.). @ -None done What testing was considered but not performed or refused? (CT, X-rays, U/S, labs)? Why? @ -None What meds were considered but not given or refused? Why? @ -None Did you discuss the management of the patient with other professionals (professionals i.e. , PA, FURNITURE DETAILER, lab, RT, psych nurse, social media senior associate, metal spray operator, teacher, animal services officer, social work case manager)? Give summary @ -Yes, I discussed this case with Dr. Hill, on-call trauma surgeon, who advised admission to medicine with her on consult. Also, spoke with Dr. Trevizo who accepted medical management. Was smoking cessation discussed for >3mins.? @ -No Was critical care preformed (if so, how long)? @ -No Were there social determinants of health that impacted care today? How? (Homelessness, low income, unemployed, alcoholism, drug addiction, transportation, low edu. Level, literacy, decrease access to med. care, half-way, rehab)? @ -No Was there de-escalation of care discussed even if they declined (Discuss DNR or withdrawal of care, Hospice)? DNR status @ -No What co-morbidities impacted this encounter? (DM, HTN, Smoking, COPD, CAD, Cancer, CVA, ARF, Chemo, Hep., AIDS, mental health diagnosis, sleep apnea, mo rbid obesity)? @ -Thyroid with disorder, mitral valve prolapse, rheumatoid arthritis, hyperlipidemia Was patient admitted / discharged? Hospital course, mention meds given and route, prescriptions, significant lab abnormalities, going to OR and other pertinent info. @ -Admitted. Patient is an 83-year-old female presented to the ER with chief complaint of animal bite. History and physical exam were completed. Vitals stable. No signs of acute distress. Exam significant for exquisitely tender left upper extremity with proximally spreading erythema. Left upper extremity warm to touch, compartm ents soft, sensation intact, 2+ left radial pulse. Due to patient recently being treated with outpatient antibiotics for animal bite about 2 weeks ago admission was considered for IV antibiotics. Dr. Razo, ER attending, also examined patient and agreed for admission. Case discussed with Dr. Hill, construction services technician trauma surgeon, as animal bite meets trauma criteria. She advised on medical admission with her on consult. Case also discussed with Dr. Trevizo who accepted medical management. ID and trauma surgery on consult. Patient started on IV Unasyn, fluids, Dilaudid and Zofran. Labs pending. Tetanus is up to date. Patient agreeable for admission. Patient will be admitted in stable condition for IV antibiotics and further care. Patient expressed understanding and agreement with care plan. Undiagnosed new problem with uncertain prognosis? @ -No Drug Therapy requiring intensive monitoring for toxicity (Heparin, Nitro, Insulin, Cardizem)? @ -No Were any procedures done? @ -No Diagnosis/symptom? @ -Cellulitis/animal bite Acute, or Chronic, or Acute on Chronic? @ -Acute Uncomplicated (without systemic symptoms) or Complicated (systemic symptoms)? @ -Uncomplicated Side effects of treatment? @ -No Exacerbation, Progression, or Severe Exacerbation? @ -No Poses a threat to life or bodily function? How? (Chest pain, [place], VA, pneumonia, PE, COPD, DKA, ARF, appy, cholecystitis, CVA, Diverticulitis, Homicidal, Suicidal, threat to staff... and all critical care pts) @ -No (Lilibeth Ernandez) - Lab Data Lab Results 12/22/23 12/22/23 Range/Units 18:41 18:41 WBC 10.4 (3.8-10.6) k/uL RBC 4.30 (3.80-5.40) m/uL Hgb 13.8 (11.4-16.0) gm/dL Hct 41.2 (34.0-46.0) % MCV 95.9 (80.0-100.0) fL MCH 32.2 (25.0-35.0) pg MCHC 33.6 (31.0-37.0) g/dL RDW 13.4 (11.5-15.5) % Plt Count 182 (150-450) k/uL MPV 8.5 Sodium 134 L (137-145) mmol/L Potassium 4.3 (3.5-5.1) mmol/L Chloride 105 (98-107) mmol/L Carbon Dioxide 23 (22-30) mmol/L Anion Gap 6 mmol/L BUN 36 H (7-17) mg/dL Creatinine 1.31 H (0.52-1.04) mg/dL Est GFR (CKD-EPI)AfAm 43 (>60 ml/min/1.73 sqM) Est GFR (CKD-EPI)NonAf 38 (>60 ml/min/1.73 sqM) Glucose 96 (74-99) mg/dL Calcium 9.4 (8.4-10.2) mg/dL Total Bilirubin 1.0 (0.2-1.3) mg/dL AST 50 H (14-36) U/L ALT 39 H (4-34) U/L Alkaline Phosphatase 79 (38-126) U/L Total Protein 7.3 (6.3-8.2) g/dL Albumin 4.4 (3.5-5.0) g/dL Disposition Time of Disposition: 18:45 <Lilibeth Ernandez - Last Filed: 12/22/23 18:57> <Roger Razo - Last Filed: 12/23/23 23:30> Clinical Impression: Cellulitis, Dog bite Disposition: ADMITTED IP TO THIS [facility] Condition: Stable
[2023-12-22] MEDS: AMPICILLIN-SULBACTAM 3 GM in SODIUM CHLORIDE 0.9% 100 ML IVPB STA (18:36)
[2023-12-22] MEDS: ONDANSETRON 4 MG/2 ML VIAL IVP STA (18:38)
[2023-12-22] MEDS: HYDROmorphone 0.5 MG/0.5 ML SYRINGE IVP STA (18:40)
[2023-12-22] MEDS: SODIUM CHLORIDE 0.9% 1,000 ML IV STA (18:41)
[2023-12-22] MEDS: ACETAMINOPHEN TAB 325 MG TAB PO STA (18:41)
[2023-12-22] MEDS ORDERED: NALOXONE 0.4 MG/ML 1 ML VIAL IV PRN (18:45)
[2023-12-22 19:10] LABS: HCT 41.2 % (34.0-46.0); HGB 13.8 gm/dL (11.4-16.0); MCH 32.2 pg (25.0-35.0); MCHC 33.6 g/dL (31.0-37.0); MCV 95.9 fL (80.0-100.0); Mean Platelet Volume 8.5; Platelet Count 182 k/uL (150-450); RDW 13.4 % (11.5-15.5); WBC 10.4 k/uL (3.8-10.6)
[2023-12-22 19:22] LABS: ALT 39 U/L (4-34); AST 50 U/L (14-36); African American GFR (CKD) 43 (>60 ml/min/1.73 sqM); Albumin 4.4 g/dL (3.5-5.0); Alkaline Phosphatase 79 U/L (38-126); Anion Gap 6 mmol/L; Blood Urea Nitrogen 36 mg/dL (7-17); Calcium 9.4 mg/dL (8.4-10.2); Carbon Dioxide 23 mmol/L (22-30); Chloride 105 mmol/L (98-107); Glucose 96 mg/dL (74-99); Non-African American GFR(CKD) 38 (>60 ml/min/1.73 sqM); Potassium 4.3 mmol/L (3.5-5.1); Sodium 134 mmol/L (137-145); Total Protein 7.3 g/dL (6.3-8.2)
[2023-12-22] MEDS: SODIUM CHLORIDE 0.9% 1,000 ML IV SCH (19:44)
[2023-12-22] MEDS: traMADol 50 MG TAB PO PRN (22:43)
[2023-12-22] MEDS: traZODone HCL 50 MG TAB PO SCH (22:44)
[2023-12-23] MEDS: LEVOTHYROXINE 100 MCG TAB PO SCH (05:42)
[2023-12-23] MEDS: ENOXAPARIN 80 MG/0.8 ML SYRINGE SQ SCH (10:10)
[2023-12-23] MEDS: METOPROLOL SUCCINATE (ER) 25 MG TAB.ER.24H PO SCH (10:10)
[2023-12-23] MEDS: FUROSEMIDE 40 MG TAB PO SCH (10:10)
[2023-12-23] MEDS: SPIRONOLACTONE 25 MG TAB PO SCH (10:10)
[2023-12-23] MEDS: FAMOTIDINE 20 MG/2 ML VIAL IV SCH (10:28)
[2023-12-23] MEDS ORDERED: HYDROcodone/APAP 5-325MG 1 EACH TAB PO PRN (10:56)
[2023-12-23] MEDS ORDERED: HYDROmorphone 0.5 MG/0.5 ML SYRINGE IVP PRN (10:56)
--- NOTE | 2023-12-23 11:43 | HP ---
HISTORY AND PHYSICAL CHIEF COMPLAINT: Pain and swelling of the left arm following dog bite. HISTORY OF PRESENT ILLNESS: This is an 83-year-old woman with a past medical history of multiple medical problems, admitted with significant dog bite which happened 2 weeks ago. The patient is on outpatient antibiotic. Apparently, the dog was sick and the patient was trying to take care of with diapers and such, but the dog bit her and the second time dog was biting her, the patient had dog bite on the right arm which apparently resulted in sepsis and unfortunately the family is putting down the down dog today. The pain and swelling increased now, the patient has pain and swelling and extensive erythema all up to the left arm and up to the shoulder. The patient unable to move the shoulder and arm also. The patient was admitted for further evaluation and treatment. There is no history of any fever, rigors, or chills. The creatinine is elevated up to 1.31, the baseline was 1.7. PAST MEDICAL HISTORY: Reviewed include atrial fibrillation, hyperlipidemia, rest of the history and rest of the chart is also reviewed. HOME MEDICATIONS: Reviewed include metoprolol, dose and rest of medications reviewed. ALLERGIES: Arimidex. FAMILY HISTORY: History of breast cancer. SOCIAL HISTORY: Previous history of smoking. REVIEW OF SYSTEMS: A 14-point review is negative except as mentioned earlier. PHYSICAL EXAMINATION: VITAL SIGNS: Pulse is 61, blood pressure 100/52, respirations 16. HEENT: Conjunctivae normal. NECK: No jugular venous distention. CARDIOVASCULAR: S1, S2 muffled. RESPIRATIONS: Diminished at the bases, few scattered rhonchi and crackles. ABDOMEN: Soft, nontender. LEGS: No edema, no swelling. NERVOUS SYSTEM: No focal deficit. SKIN: As mentioned. JOINTS: No active deforming arthropathy. EXTREMITIES: Shows left arm significant swelling, pain, and tenderness and pain on movement also present, started from the forearm to above, bite carson noted. LABORATORY DATA: Reviewed. ASSESSMENT: 1. Left arm dog bite with failure of outpatient treatment with possible early sepsis with severe pain and severe swelling. 2. History of previous sepsis. 3. Atrial fibrillation. 4. GERD. 5. Hyperlipidemia. 6. History of rheumatoid arthritis. 7. History of breast cancer. 8. Multiple complex medical issues. RECOMMENDATIONS AND DISCUSSION: This 83-year-old woman presented with multiple complex medical issues. At this time, I recommend to continue the medications. The patient has failed outpatient treatment. I recommend Unasyn 3 g IV q.6. Surgical and Infectious Disease evaluation, we obtained the cultures. Resume the home medications. Pain management. I would not recommend any NSAIDs at this time because of the kidney failure. We will continue to monitor and further recommendations to follow. I would stop anticoagulation for now anticipating further surgical evaluation prognosis guarded because of because of multiple complex medical problems, see orders for details, further recommendations to follow. Cautious IV fluids. MMAWILDAL / IJN: [id number] /
[2023-12-23] MEDS ORDERED: ACETAMINOPHEN TAB 325 MG TAB PO PRN (13:03)
[2023-12-23] MEDS: AMPICILLIN-SULBACTAM 3 GM in SODIUM CHLORIDE 0.9% 100 ML IVPB SCH (13:12)
--- NOTE | 2023-12-23 16:50 | P.GSCN ---
History of Present Illness Consult date: 12/23/23 History of present illness: CHIEF COMPLAINT: Dog bite HISTORY OF PRESENT ILLNESS: This is a 83-year-old female presented the hospital with complaints of dog bite to the left hand. Patient has developed swelling and redness into the arm. There is been no drainage from the puncture site. She does have a prior history of lymphedema in that left arm. She denies any f ever or chills or sweats. White count normal at 10.4 and she is being evaluated by infectious disease and on antibiotics. PAST MEDICAL HISTORY: See list. PAST SURGICAL HISTORY: See list. MEDICATIONS: See list. ALLERGIES: See list. SOCIAL HISTORY: No illicit drug use. REVIEW OF SYSTEMS: CONSTITUTIONAL: Denies fever or chills. HEENT: Denies blurred vision, vision changes, or eye pain. Denies hemoptysis ENDOCRINE: Denies heat or cold intolerance. CARDIOVASCULAR: Denies chest pain or pressure. RESPIRATORY: No shortness of breath. GASTROINTESTINAL: Denies abdominal pain. Denies nausea or vomiting. NEURO: Denies history of seizures. PSYCH: No depression or suicidal ideation HEMATOLOGIC: Denies bleeding disorders. LYMPHATIC: The patient denies any lumps and bumps around the neck. GENITOURINARY: Denies any blood in urine or increased urinary frequency. MUSCULOSKELETAL: Denies myalgias. Denies joint swelling. SKIN: Denies pruitis. Denies rash. PHYSICAL EXAM: VITAL SIGNS: Reviewed GENERAL: Well-developed in no acute distress. HEENT: No sclera icterus. Extraocular movements grossly intact. Moist buccal mucosa. Head is atraumatic, normocephalic. Hears conversational speech. No nasal drainage. NECK: Supple without lymphadenopathy. CHEST: Non-labored respirations and equal bilateral excursions. CARDIOVASCULAR: Palpable 2+ radial pulses. ABDOMEN: Soft. Nondistended. Nontender MUSCULOSKELETAL: No clubbing or cyanosis. NEUROLOGIC: No focal or lateralizing signs. Cranial nerves II through XII grossly intact. PSYCH: Appropriate affect. Alert and oriented to person, place and time. SKIN: Well perfused. Good skin turgor. Extremities: Left hand posterior tooth puncture lakshmi scabbed over. No drainage. There is erythema and swelling down the left forearm. LABORATORY DATA: WBC 10.4 Hgb 13.8 platelets 182 Sodium is 134 potassium is 4.3 creatinine 1.31 IMAGING: ASSESSMENT: 1. Dog bite to left hand with left arm cellulitis and swelling PLAN: -Continue antibiotics -Consults orthopedic service for dog bite and to evaluate for compartment syn drome -Continue to elevate arm -Continue supportive care -No surgical intervention planned Physician Dispensing Operator note has been reviewed by physician. Signing provider agrees with the documented findings, assessment, and plan of care. Past Medical History Past Medical History: Atrial Fibrillation, Cancer, Eye Disorder, GERD/Reflux, Hyperlipidemia, Mitral Valve Prolapse (MVP), Rheumatoid Arthritis (RA), Thyroid Disorder Additional Past Medical History / Comment(s): Breast Ca 1969-tx w/ chemo & radiation. RT EYE CATARACT. History of Any Multi-Drug Resistant Organisms: None Reported Past Surgical History: Breast Surgery, Cholecystectomy, Orthopedic Surgery Additional Past Surgical History / Comment(s): daniel mastectomy, partial thyroidectomy, RT knee arthroscopy. EXC LT EYE CATARCT. Past Anesthesia/Blood Transfusion Reactions: Previous Problems w/ Anesthesia Additional Past Anesthesia/Blood Transfusion Reaction / Comm: wakes up during OR - DURING PORT INSERTION; DURING CATARACT SURG WAS "BABBLING." Past Psychological History: No Psychological Hx Reported Smoking Status: Former smoker Past Alcohol Use History: Occasional Additional Past Alcohol Use History / Comment(s): quit smoking AGE 35, started as a teenager, WAS OCC USER. Past Drug Use History: None Reported - Past Family History Mother Family Medical History: Cancer Additional Family Medical History / Comment(s): Breast. Brother(s) Family Medical History: Cancer Medications and Allergies Home Medications Medication Instructions Recorded Confirmed Type Levothyroxine Sodium [Synthroid] 100 mcg PO DAILY 01/01/20 12/22/23 History Amoxic-Pot Clav 875-125Mg 1 tab PO DIRECTED 12/22/23 12/22/23 History [Augmentin 875-125] Apixaban [Eliquis] 5 mg PO BID 12/22/23 12/22/23 History Cetirizine HCl [Zyrtec] 10 mg PO HS 12/22/23 12/22/23 History Furosemide [Lasix] 40 mg PO DAILY 12/22/23 12/22/23 History Metoprolol Succinate (ER) [Toprol 25 mg PO DAILY 12/22/23 12/22/23 History Xl] Spironolactone [Aldactone] 12.5 mg PO DAILY 12/22/23 12/22/23 History lisinopriL [Zestril] 2.5 mg PO DAILY 12/22/23 12/22/23 History traMADol HCL 50 mg PO HS 12/22/23 12/22/23 History traZODone HCL [Desyrel] 50 mg PO HS 12/22/23 12/22/23 History Allergies Allergy/AdvReac Type Severity Reaction Status Date / Time anastrozole [From Arimidex] Allergy Rash/Hives Verified 12/22/23 20:32 metoclopramide HCl Allergy Hallucinati Verified 12/22/23 20:32 [From Reglan] ons Surgical - Exam Vital Signs Temp Pulse Resp BP Pulse Ox 98 F 100 18 129/76 98 12/22/23 17:43 12/22/23 17:43 12/22/23 17:43 12/22/23 17:43 12/22/23 17:43 Results - Labs 12/22/23 18:41 12/22/23 18:41 Abnormal Lab Results - Last 24 Hours (Table) 12/22/23 Range/Units 18:41 Sodium 134 L (137-145) mmol/L BUN 36 H (7-17) mg/dL Creatinine 1.31 H (0.52-1.04) mg/dL AST 50 H (14-36) U/L ALT 39 H (4-34) U/L Diabetes panel 12/22/23 Range/Units 18:41 Sodium 134 L (137-145) mmol/L Potassium 4.3 (3.5-5.1) mmol/L Chloride 105 (98-107) mmol/L Carbon Dioxide 23 (22-30) mmol/L BUN 36 H (7-17) mg/dL Creatinine 1.31 H (0.52-1.04) mg/dL Glucose 96 (74-99) mg/dL Calcium 9.4 (8.4-10.2) mg/dL AST 50 H (14-36) U/L ALT 39 H (4-34) U/L Alkaline Phosphatase 79 (38-126) U/L Total Protein 7.3 (6.3-8.2) g/dL Albumin 4.4 (3.5-5.0) g/dL Calcium panel 12/22/23 Range/Units 18:41 Calcium 9.4 (8.4-10.2) mg/dL Albumin 4.4 (3.5-5.0) g/dL Pituitary panel 12/22/23 Range/Units 18:41 Sodium 134 L (137-145) mmol/L Potassium 4.3 (3.5-5.1) mmol/L Chloride 105 (98-107) mmol/L Carbon Dioxide 23 (22-30) mmol/L BUN 36 H (7-17) mg/dL Creatinine 1.31 H (0.52-1.04) mg/dL Glucose 96 (74-99) mg/dL Calcium 9.4 (8.4-10.2) mg/dL Adrenal panel 12/22/23 Range/Units 18:41 Sodium 134 L (137-145) mmol/L Potassium 4.3 (3.5-5.1) mmol/L Chloride 105 (98-107) mmol/L Carbon Dioxide 23 (22-30) mmol/L BUN 36 H (7-17) mg/dL Creatinine 1.31 H (0.52-1.04) mg/dL Glucose 96 (74-99) mg/dL Calcium 9.4 (8.4-10.2) mg/dL Total Bilirubin 1.0 (0.2-1.3) mg/dL AST 50 H (14-36) U/L ALT 39 H (4-34) U/L Alkaline Phosphatase 79 (38-126) U/L Total Protein 7.3 (6.3-8.2) g/dL Albumin 4.4 (3.5-5.0) g/dL
[2023-12-23] MEDS: LORATADINE 10 MG TAB PO SCH (20:28)
--- NOTE | 2023-12-23 22:40 | P.CONS ---
History of Present Illness - Reason for Consult Consult date: 12/23/23 Cellulitis/animal bite Requesting physician: Lilibeth Ernandez - Chief Complaint Left upper extremity swelling and redness x 1 day - History of Present Illness Patient is a 83-year-old female with a past medical history significant for atrial fibrillation hyperlipidemia rheumatoid arthritis reflux have presenting to the hospital for evaluation of increasing swelling and redness to the left upper extremity apparently the patient has been bitten by her dog day before presentation to the hospital patient subsequently noticed to have increasing swelling and redness to the left hand which was extending to the left forearm a day after the bite for the patient present to the hospital patient complaining of pain describing it to be sharp moderate to severe intensi ty with associated swelling redness did not have any open wound or any drainage patient on presentation to the hospital was afebrile she did have low-grade fever of 99.8 F this morning patient was not tachycardic hypotensive or hypoxic patient did have white count of 10.4 BUN/creatinine has been mildly elevated liver isms are mildly elevated blood cultures obtained which are currently pending patient did receive a dose of Unasyn in the ER infectious he was subsequently consulted for further management of antibiotic therapy Review of Systems Positive point and negatives has been mentioned in the HPI, complete review of systems was performed and all other systems are negative Past Medical History Past Medical History: Atrial Fibrillation, Cancer, Eye Disorder, GERD/Reflux, Hyperlipidemia, Mitral Valve Prolapse (MVP), Rheumatoid Arthritis (RA), Thyroid Disorder Additional Past Medical History / Comment(s): Breast Ca 1969-tx w/ chemo & radiation. RT EYE CATARACT. History of Any Multi-Drug Resistant Organisms: None Reported Past Surgical History: Breast Surgery, Cholecystectomy, Orthopedic Surgery Additional Past Surgical History / Comment(s): daniel mastectomy, partial thyroidectomy, RT knee arthroscopy. EXC LT EYE CATARCT. Past Anesthesia/Blood Transfusion Reactions: Previous Problems w/ Anesthesia Additional Past Anesthesia/Blood Transfusion Reaction / Comm: wakes up during OR - DURING PORT INSERTION; DURING CATARACT SURG WAS "BABBLING." Past Psychological History: No Psychological Hx Reported Smoking Status: Former smoker Past Alcohol Use History: Occasional Additional Past Alcohol Use History / Comment(s): quit smoking AGE 35, started as a teenager, WAS OCC USER. Past Drug Use History: None Reported - Past Family History Mother Family Medical History: Cancer Additional Family Medical History / Comment(s): Breast. Brother(s) Family Medical History: Cancer Medications and Allergies Home Medications Medication Instructions Recorded Confirmed Type Levothyroxine Sodium [Synthroid] 100 mcg PO DAILY 01/01/20 12/22/23 History Apixaban [Eliquis] 5 mg PO BID 12/22/23 12/22/23 History Cetirizine HCl [Zyrtec] 10 mg PO HS 12/22/23 12/22/23 History Furosemide [Lasix] 40 mg PO DAILY 12/22/23 12/22/23 History Metoprolol Succinate (ER) [Toprol 25 mg PO DAILY 12/22/23 12/22/23 History XL] Spironolactone [Aldactone] 12.5 mg PO DAILY 12/22/23 12/22/23 History lisinopriL [Zestril] 2.5 mg PO DAILY 12/22/23 12/22/23 History traMADol HCL 50 mg PO HS 12/22/23 12/22/23 History traZODone HCL [Desyrel] 50 mg PO HS 12/22/23 12/22/23 History Acetaminophen Tab [Tylenol] 650 mg PO Q6HR PRN tab 12/27/23 Rx Amoxic-Pot Clav 875-125Mg 1 each PO Q12HR 7 Days #14 tab 12/27/23 Rx [Augmentin 875-125] Allergies Allergy/AdvReac Type Severity Reaction Status Date / Time anastrozole [From Arimidex] Allergy Rash/Hives Verified 12/22/23 20:32 metoclopramide HCl Allergy Hallucinati Verified 12/22/23 20:32 [From Reglan] ons Physical Exam Vitals: Vital Signs Temp Pulse Pulse Resp BP BP Pulse Ox 12/23/23 08:02 118/56 12/23/23 07:38 99.8 F H 61 16 94 L 12/23/23 02:00 99.6 F 63 16 100/52 91 L 12/22/23 22:10 145/72 12/22/23 22:00 18 12/22/23 21:08 73 18 119/68 96 12/22/23 20:00 98.0 F 62 16 94 L 12/22/23 19:46 86 18 164/72 96 12/22/23 17:43 98 F 100 18 129/76 98 Intake and Output 12/22/23 12/23/23 12/23/23 22:59 06:59 14:59 Intake Total 1490 Balance 1490 Intake: Intake, IV Titration 900 Amount Sodium Chloride 0.9% 1, 900 000 ml @ 75 mls/hr IV . [id number] [facility] Rx#:[id number] Oral 590 Other: Voiding Method Toilet Toilet Diaper Diaper # Voids 3 3 Weight 68.039 kg GENERAL DESCRIPTION: Elderly female lying in bed, no distress. No tachypnea or accessory muscle of respiration use. HEENT: Shows Pallor , no scleral icterus. Oral mucous membrane is dry. No p haryngeal erythema or thrush NECK: Trachea central, no thyromegaly. LUNGS: Unlabored breathing. Clear to auscultation anteriorly. No wheeze or crackle. HEART: S1, S2, regular rate and rhythm. No loud murmur ABDOMEN: Soft, no tenderness , guarding or rigidity, no organomegaly EXTREMITIES: Left upper extremity with diffuse swelling and redness which is warm and tender to touch SKIN: No rash, no masses palpable. NEUROLOGICAL: The patient is awake, alert, oriented x3, mood and affect normal. Results CBC & Chem 7: 12/26/23 06:10 12/26/23 06:10 Labs: Abnormal Lab Results - Last 24 Hours (Table) 12/22/23 Range/Units 18:41 Sodium 134 L (137-145) mmol/L BUN 36 H (7-17) mg/dL Creatinine 1.31 H (0.52-1.04) mg/dL AST 50 H (14-36) U/L ALT 39 H (4-34) U/L Assessment and Plan (1) Cellulitis Status: Acute Code(s): L03.90 - CELLULITIS, UNSPECIFIED SNOMED Code(s): 832138243 (2) Dog bite Status: Acute Code(s): W54.0XXA - BITTEN BY DOG, INITIAL ENCOUNTER SNOMED Code(s): 761745343 (3) Left arm cellulitis Status: Acute Code(s): L03.114 - CELLULITIS OF LEFT UPPER LIMB SNOMED Code(s): 28979357582037538 Plan: 1patient presented to hospital with left hand and upper extremity pain and swelling redness after dog bite the day before presentation to the hospital we will need to cover for the polymicrobial raymond associated with a dog bite infection 2-mild renal insufficiency 3-we will start the patient on Unasyn 3 g every 6 hours while waiting for the culture to finalize 4-marked area of redness Daughter at the bedside multiple questions answered We will follow on clinical condition and cultures to further adjust medication if needed Thank you for this consultation we will follow the patient along with you Dictation was produced using [employer] dictation software. please excuse any grammatical, word or spelling errors. Time with Patient: Greater than 30
--- NOTE | 2023-12-24 08:18 | XR ---
EXAMINATION TYPE: XR chest 1V portable DATE OF EXAM: 12/23/2023 COMPARISON: 02/14/2019 HISTORY: Shortness of breath TECHNIQUE: Single frontal view of the chest is obtained. FINDINGS: Exam limited due to overlying artifact. There is cardiomegaly with reduced inspiration and interstitial prominence. Left apical scarring is seen. Bibasilar subsegmental consolidation. Surgica l clips in the left axilla. IMPRESSION: 1. Correlate for mild venous congestion. Exam limited due to overlying artifact. 2. Left apical density stable from 2019 and therefore likely in the bases representing scarring. 3. Bibasilar atelectasis favored over pneumonia.
[2023-12-24] MEDS: FAMOTIDINE 20 MG TAB PO SCH (08:46)
--- NOTE | 2023-12-24 10:02 | P.CNOR ---
History of Present Illness - HPI Consult date: 12/24/23 History of present illness: This is an 83-year-old female who is admitted for a dog bite to the left hand that happened about 5 days ago. Orthopedics is consulted for further evaluation. Patient is seen and evaluated at bedside today. Patient states that her dog bit her about 5 days ago and the next day she has significant swelling and limited motion of the left wrist and hand. Patient states that her swelling has significantly improved and she now has full motion of the left hand and wrist. Patient states that most of her pain is in the left shoulder now. Patient states that she had mild left shoulder pain prior to the dog bite, but this has worsened over the last few days. Patient states that she has history of lymphedema in the left upper extremity from previous mastectomy for breast cancer. Patient states that the redness and swelling in her upper arm continues to improve. Patient's past medical history significant for atrial fibrillation, breast cancer, GERD, hyperlipidemia, mitral valve prolapse, rheumatoid arthritis and thyroid disorder. Patient denies any fever/chills, chest pain, shortness breath, abdominal pain, numbness, weakness or tingling. Review of Systems See HPI. Past Medical History Past Medical History: Atrial Fibrillation, Cancer, Eye Disorder, GERD/Reflux, Hyperlipidemia, Mitral Valve Prolapse (MVP), Rheumatoid Arthritis (RA), Thyroid Disorder Additional Past Medical History / Comment(s): Breast Ca 1969-tx w/ chemo & radiation. RT EYE CATARACT. History of Any Multi-Drug Resistant Organisms: None Reported Past Surgical History: Breast Surgery, Cholecystectomy, Orthopedic Surgery Additional Past Surgical History / Comment(s): daniel mastectomy, partial thyroidectomy, RT knee arthroscopy. EXC LT EYE CATARCT. Past Anesthesia/Blood Transfusion Reactions: Previous Problems w/ Anesthesia Additional Past Anesthesia/Blood Transfusion Reaction / Comm: wakes up during OR - DURING PORT INSERTION; DURING CATARACT SURG WAS "BABBLING." Past Psychological History: No Psychological Hx Reported Smoking Status: Former smoker Past Alcohol Use History: Occasional Additional Past Alcohol Use History / Comment(s): quit smoking AGE 35, started as a teenager, WAS OCC USER. Past Drug Use History: None Reported - Past Family History Mother Family Medical History: Cancer Additional Family Medical History / Comment(s): Breast. Brother(s) Family Medical History: Cancer Medications and Allergies Home Medications Medication Instructions Recorded Confirmed Type Levothyroxine Sodium [Synthroid] 100 mcg PO DAILY 01/01/20 12/22/23 History Amoxic-Pot Clav 875-125Mg 1 tab PO DIRECTED 12/22/23 12/22/23 History [Augmentin 875-125] Apixaban [Eliquis] 5 mg PO BID 12/22/23 12/22/23 History Cetirizine HCl [Zyrtec] 10 mg PO HS 12/22/23 12/22/23 History Furosemide [Lasix] 40 mg PO DAILY 12/22/23 12/22/23 History Metoprolol Succinate (ER) [Toprol 25 mg PO DAILY 12/22/23 12/22/23 History Xl] Spironolactone [Aldactone] 12.5 mg PO DAILY 12/22/23 12/22/23 History lisinopriL [Zestril] 2.5 mg PO DAILY 12/22/23 12/22/23 History traMADol HCL 50 mg PO HS 12/22/23 12/22/23 History traZODone HCL [Desyrel] 50 mg PO HS 12/22/23 12/22/23 History Allergies Allergy/AdvReac Type Severity Reaction Status Date / Time anastrozole [From Arimidex] Allergy Rash/Hives Verified 12/22/23 20:32 metoclopramide HCl Allergy Hallucinati Verified 12/22/23 20:32 [From Reglan] ons Physical Examination On exam patient is resting comfortably in bed in no acute distress. Patient is alert and oriented 3. Left upper extremity: There is a healing puncture wound from a dog bite to the dorsum of the left hand. There is no significant swelling of the left hand or wrist and patient has full motion of the left wrist and hand without pain or difficulty. There is mild to moderate swelling over the left forearm and left upper arm. Compartments are soft. Radial pulse is 2+. The left upper extremity is warm and well-perfused. Patient has good range of motion of the left elbow with no significant pain. There is tenderness to palpation over the AC joint and anterior aspects of the left shoulder. There is no joint effusion. Patient has some pain and limitation with motion of the left shoulder. Sensation intact. Neurovascular status and circulatory status are intact. Results - Labs Labs: Microbiology - Last 24 Hours (Table) 12/22/23 18:41 Blood Culture Gram Stain - Preliminary Blood 12/22/23 18:41 Blood Culture - Preliminary Blood 12/22/23 18:41 Gram Stain - Preliminary Hand - Left Wound Culture - Preliminary H & H 12/22/23 Range/Units 18:41 Hgb 13.8 (11.4-16.0) gm/dL Hct 41.2 (34.0-46.0) % Result Diagrams: 12/22/23 18:41 12/22/23 18:41 Assessment and Plan (1) Left shoulder pain Current Visit: Yes Status: Acute Code(s): M25.512 - PAIN IN LEFT SHOULDER SNOMED Code(s): 7683428650 (2) Cellulitis Current Visit: Yes Status: Acute Code(s): L03.90 - CELLULITIS, UNSPECIFIED SNOMED Code(s): 405903905 (3) Dog bite Current Visit: Yes Status: Acute Code(s): W54.0XXA - BITTEN BY DOG, INITIAL ENCOUNTER SNOMED Code(s): 978738216 Plan: 1. X-rays of the left shoulder are pending. Patient has a history of rheumatoid arthritis and chronic left shoulder pain. 2. Low suspicion for compartment syndrome. Patient's symptoms continue to improve with IV antibiotics. There is no surgical intervention planned. Further recommendations pending x-ray results.
[2023-12-24 11:01] LABS: Basophils # (A) 0.03 X 10*3/uL (0.00-0.10); Basophils % (A) 0.3 %; Eosinophils # (A) 0.03 X 10*3/uL (0.04-0.35); Eosinophils % (A) 0.3 %; HCT 35.9 % (37.2-46.3); HGB 11.6 g/dL (12.0-15.0); Lymphocytes # (A) 1.17 X 10*3/uL (0.90-5.00); Lymphocytes % (A) 11.7 %; MCH 31.6 pg (27.0-32.0); MCHC 32.3 g/dL (32.0-37.0); MCV 97.8 FL (80.0-97.0); Mean Platelet Volume 11.1 FL (9.5-12.2); NRBC Per 100 WBC 0 X 10*3/uL (0.00-0.01); Neutrophils # (A) 8.11 X 10*3/uL (1.80-7.70); Neutrophils % (A) 81.5 %; Platelet Count 132 X 10*3/uL (140-440); RBC 3.67 X 10*6/uL (4.10-5.20); RDW 14.1 % (11.5-14.5); WBC 9.96 X 10*3/uL (4.50-10.00)
[2023-12-24 11:26] LABS: BUN/Creat Ratio 17.54 Ratio (12.00-20.00); Blood Urea Nitrogen 22.8 mg/dL (9.0-27.0); Calcium 8.6 mg/dL (8.7-10.3); Carbon Dioxide 21.1 mmol/L (21.6-31.8); Chloride 105 mmol/L (96-109); Glucose 108 mg/dL (70-110); Potassium 3.7 mmol/L (3.5-5.5); Sodium 137 mmol/L (135-145)
--- NOTE | 2023-12-24 13:23 | P.PN ---
Subjective Progress Note Date: 12/24/23 Principal diagnosis: Reason for follow-up is left upper extremity dog bite cellulitis and positive blood culture Patient is a 83-year-old female with a past medical history significant for atrial fibrillation hyperlipidemia rheumatoid arthritis reflux have presenting to the hospital for evaluation of increasing swelling and redness to the left upper extremity apparently the patient has been bitten by her dog day before presentation to the hospital, patient be diagnosed with a left upper extremity dog bite cellulitis. On today's evaluation that is 12/24/2023, the patient did have a low-grade fever of 99 point 12:07 however the patient is afebrile since then, patient is on room air, the patient denies chest pain shortness of breath or cough, patient denies nausea no vomiting no abdominal pain and no diarrhea, the patient left upper extremity swelling pain has slightly decreased. Patient did have white count of 9.96, creatinine is 1.3 blood cultures positive for coagulase-negative staph Objective - Vital Signs Vital signs: Vital Signs Temp 98.3 F 12/24/23 07:29 Pulse 89 12/24/23 07:29 Resp 16 12/24/23 07:29 BP 102/52 12/24/23 07:29 Pulse Ox 94 L 12/24/23 07:29 FiO2 Intake & Output 12/23/23 12/24/23 12/24/23 18:59 06:59 18:59 Intake Total 2090 Output Total 950 Balance -950 2090 Intake: Intake, IV Titration 1000 Amount Ampicillin-Sulbactam 3 gm 100 In Sodium Chloride 0.9% 100 ml @ 200 mls/hr IVPB Q12H [facility] Rx#:[id number] Sodium Chloride 0.9% 1, 900 000 ml @ 75 mls/hr IV . [id number] [facility] Rx#:[id number] Oral 1090 Output: Urine 950 Other: Voiding Method Toilet Diaper Diaper Diaper External Catheter External Catheter # Voids 3 2 - Exam GENERAL DESCRIPTION: An elderly female lying in bed in no distress RESPIRATORY SYSTEM: Unlabored breathing , decreased breath sounds at bases HEART: S1 S2 regular rate and rhythm , ABDOMEN: Soft , no tenderness EXTREMITIES: Left upper extremity swelling and redness slightly decreased - Labs CBC & Chem 7: 12/24/23 06:47 12/24/23 06:47 Labs: Abnormal Lab Results - Last 24 Hours (Table) 12/24/23 12/24/23 Range/Units 06:47 06:47 RBC 3.67 L (4.10-5.20) X 10*6/uL Hgb 11.6 L (12.0-15.0) g/dL Hct 35.9 L (37.2-46.3) % MCV 97.8 H (80.0-97.0) FL Plt Count 132 L (140-440) X 10*3/uL Neutrophils # 8.11 H (1.80-7.70) X 10*3/uL Eosinophils # 0.03 L (0.04-0.35) X 10*3/uL Carbon Dioxide 21.1 L (21.6-31.8) mmol/L Est GFR (CKD-EPI) 41 L (>=60) Calcium 8.6 L (8.7-10.3) mg/dL Microbiology - Last 24 Hours (Table) 12/22/23 18:41 Blood Culture Gram Stain - Preliminary Blood 12/22/23 18:41 Blood Culture - Preliminary Blood 12/22/23 18:41 Gram Stain - Preliminary Hand - Left Wound Culture - Preliminary Assessment and Plan (1) Left arm cellulitis Current Visit: Yes Status: Acute Code(s): L03.114 - CELLULITIS OF LEFT UPPER LIMB SNOMED Code(s): 00131694505952742 (2) Positive blood culture Current Visit: Yes Status: Acute Code(s): R78.81 - BACTEREMIA SNOMED Code(s): 068915522 (3) Dog bite Current Visit: Yes Status: Acute Code(s): W54.0XXA - BITTEN BY DOG, INITIAL ENCOUNTER SNOMED Code(s): 262206179 Plan: 1patient presented to hospital with left hand and upper extremity pain and swelling redness after dog bite the day before presentation to the hospital we will need to cover for the polymicrobial raymond associated with a dog bite infection 2-patient did have a positive blood culture with staph epi possible skin contamination blood culture will be repeated document clearance 3-patient to continue with Unasyn 3 g every 6 hours in view of clinical response and monitor clinical course closely Dictation was produced using [employer] dictation software. please excuse any grammatical, word or spelling errors. Time with Patient: Less than 30
--- NOTE | 2023-12-24 13:44 | XR ---
EXAMINATION TYPE: XR shoulder limited LT DATE OF EXAM: 12/24/2023 COMPARISON: NONE HISTORY: Pain TECHNIQUE: One view are submitted. FINDINGS: Linear band of density in the left upper lobe most suggestive scarring. Surgical clips in the axilla. Diffuse osteopenia with mild hypertrophic arthropathy AC joint. Positioning limits assessment of the glenohumeral joint. No acute fracture visualized. IMPRESSION: 1. Osteopenia with mild AC joint arthropathy. Previous chest x-ray also demonstrates glenohumeral selam nt arthropathy with spurring.
--- NOTE | 2023-12-24 14:15 | P.PN ---
Subjective Progress Note Date: 12/24/23 CHIEF COMPLAINT: Dog bite HISTORY OF PRESENT ILLNESS: Patient's left hand and arm swelling are improving with antibiotics. Patient seen by orthopedic service. They have ordered an x- ray of the shoulder. They had low suspicion for compartment syndrome. Appreciate their input. Patient reports her pain is controlled. Patient has some low-grade temps of 99.9. WBC normal at 9.96 PHYSICAL EXAM: VITAL SIGNS: Reviewed GENERAL: Well-developed in no acute distress. HEENT: No sclera icterus. Extraocular movements grossly intact. Moist buccal mucosa. Head is atraumatic, normocephalic. Hears conversational speech. No nasal drainage. NECK: Supple without lymphadenopathy. CHEST: Non-labored respirations and equal bilateral excursions. CARDIOVASCULAR: Palpable 2+ radial pulses. ABDOMEN: Soft. Nondistended. Nontender. MUSCULOSKELETAL: No clubbing or cyanosis. NEUROLOGIC: No focal or lateralizing signs. Cranial nerves II through XII grossly intact. PSYCH: Appropriate affect. Alert and oriented to person, place and time. SKIN: Well perfused. Good skin turgor. Extremities: Left arm swelling and erythema decreased. No drainage from puncture wound on left hand ASSESSMENT: 1. Dog bite to left hand with left hand and arm cellulitis PLAN: -Continue antibiotics per infectious disease -Appreciate orthopedic service recommendations -Continue supportive care -Surgical service will sign off. Please call with any questions or concerns. Physician Brim Rounder note has been reviewed by physician. Signing provider agrees with the documented findings, assessment, and plan of care. Objective - Vital Signs Vital signs: Vital Signs Temp 98.3 F 12/24/23 07:29 Pulse 89 12/24/23 07:29 Resp 16 12/24/23 07:29 BP 102/52 12/24/23 07:29 Pulse Ox 94 L 12/24/23 07:29 FiO2 Intake & Output 12/23/23 12/24/23 12/24/23 18:59 06:59 18:59 Intake Total 2089 Output Total 950 Balance -950 0 Intake: Intake, IV Titration 1000 Amount Ampicillin-Sulbactam 3 gm 100 In Sodium Chloride 0.9% 100 ml @ 200 mls/hr IVPB Q12H [facility] Rx#:[id number] Sodium Chloride 0.9% 1, 900 000 ml @ 75 mls/hr IV . [id number] [facility] Rx#:[id number] Oral 1090 Output: Urine 950 Other: Voiding Method Toilet Diaper Diaper Diaper External Catheter External Catheter # Voids 3 2 - Labs CBC & Chem 7: 12/24/23 06:47 12/24/23 06:47 Labs: Abnormal Lab Results - Last 24 Hours (Table) 12/24/23 12/24/23 Range/Units 06:47 06:47 RBC 3.67 L (4.10-5.20) X 10*6/uL Hgb 11.6 L (12.0-15.0) g/dL Hct 35.9 L (37.2-46.3) % MCV 97.8 H (80.0-97.0) FL Plt Count 132 L (140-440) X 10*3/uL Neutrophils # 8.11 H (1.80-7.70) X 10*3/uL Eosinophils # 0.03 L (0.04-0.35) X 10*3/uL Carbon Dioxide 21.1 L (21.6-31.8) mmol/L Est GFR (CKD-EPI) 41 L (>=60) Calcium 8.6 L (8.7-10.3) mg/dL Microbiology - Last 24 Hours (Table) 12/22/23 18:41 Blood Culture Gram Stain - Preliminary Blood 12/22/23 18:41 Blood Culture - Preliminary Blood 12/22/23 18:41 Gram Stain - Preliminary Hand - Left Wound Culture - Preliminary
--- NOTE | 2023-12-24 16:40 | CT ---
EXAMINATION TYPE: CT chest wo con CT DLP: 467 mGycm, Automated exposure control for dose reduction was used. DATE OF EXAM: 12/24/2023 4:29 PM COMPARISON: 12/17/2010. CLINICAL INDICATION:Female, 83 years old with history of pneumonia, mass lesion?; TECHNIQUE: Multiple axial images were obtained through the chest. Sagittal and coronal reformats were created for review. Contrast used: mL of (None if empty) Oral contrast used: (None if empty) FINDINGS: LUNGS/ PLEURA: Trace bilateral pleural effusions. No evidence for focal consolidation, pneumothorax. Left apical streaky atelectasis/scarring is present. AIRWAY: Patent and unremarkable. HEART: Heart is moderately enlarged for size with coronary artery atherosclerosis. MEDIASTINUM: No gross evidence of adenopathy. VASCULATURE: No aortic aneurysm. MUSCULOSKELETAL: Moderate disc degeneration changes are present throughout the thoracolumbar spine. SOFT TISSUES/LYMPH NODES: Unremarkable. LOWER NECK: No significant findings. UPPER ABDOMEN: The gallbladder is surgically absent. IMPRESSION: 1. Left apical atelectasis/scarring. No evidence for mass or pneumonia. 2. Trace bilateral pleural effusions. 3. Cardiomegaly.
--- NOTE | 2023-12-24 21:16 | PN ---
PROGRESS NOTE DATE OF SERVICE: 12/24/2023 SUBJECTIVE: This is an 83-year-old woman, who was admitted with left arm dog bite, failure of outpatient treatment, is being closely monitored at this time. The patient is on IV antibiotics. The swelling is persistent. There is left apical density which was noted in the chest x-ray, which was rather stable. Chest x-ray had possible atelectasis also. PAST MEDICAL HISTORY: Reviewed. REVIEW OF SYSTEMS: A 14-point review is negative except as mentioned earlier. CURRENT MEDICATIONS: Reviewed include IV Unasyn. Dose and rest of medications noted. PHYSICAL EXAMINATION: VITAL SIGNS: Pulse is 89, blood pressure 110/50, respirations 16. CHEST: A few scattered rhonchi and rales. ABDOMEN: Soft. NERVOUS SYSTEM: Nonfocal. EXTREMITIES: Examination of the left arm, significant pain and swelling, erythema, tenderness present on the left forearm, mainly the left upper arm also had significant swelling and erythema, tenderness also. LABORATORY DATA: Creatinine 1.3, rest of the labs are noted. ASSESSMENT: 1. Left arm dog bite with failure of outpatient treatment with possible early sepsis with severe pain and severe swelling. 2. History of previous sepsis. 3. Atrial fibrillation. 4. Gastroesophageal reflux disease. 5. Hyperlipidemia. 6. Bilateral atelectasis and left atypical shadow in the chest x-ray. 7. History of rheumatoid arthritis. 8. History of breast cancer. 9. Multiple complex medical issues. RECOMMENDATIONS AND DISCUSSION: Recommend to continue current medications, continue symptomatic treatment. Otherwise, I would recommend continue the antibiotics. Recommend CT scan of the chest also, rule out any acute abnormality. The patient is also complaining the pain in that area. Guarded prognosis. Further recommendations to follow. MMODL / IJN: [id number] /
[2023-12-25] MEDS: APIXABAN 5 MG TAB PO SCH (09:06)
--- NOTE | 2023-12-25 09:59 | P.PN ---
Subjective Progress Note Date: 12/25/23 This is an 83-year-old female who is admitted for IV antibiotics after a dog bite. Patient is seen and evaluated bedside today and states that her symptoms continue to improve. Patient states that the left shoulder is sore, but she has been able to move the left shoulder with less pain today. Patient denies any new complaints today. Objective - Vital Signs Vital signs: Vital Signs Temp 97.6 F 12/25/23 07:55 Pulse 63 12/25/23 07:55 Resp 16 12/25/23 07:55 BP 104/59 12/25/23 07:55 Pulse Ox 96 12/25/23 07:55 FiO2 Intake & Output 12/24/23 12/25/23 12/25/23 18:59 06:59 18:59 Intake Total 600 Output Total 950 Balance -950 600 Intake: Intake, IV Titration 100 Amount Ampicillin-Sulbactam 3 gm 100 In Sodium Chloride 0.9% 100 ml @ 200 mls/hr IVPB Q12H [facility] Rx#:[id number] Oral 500 Output: Urine 950 Other: Voiding Method Diaper Diaper External Catheter External Catheter # Voids 1 - Exam On exam patient is resting comfortably in bed in no acute distress. Patient is alert and oriented 3. Left upper extremity: There is a healing puncture wound from a dog bite to the dorsum of the left hand. There is no significant swelling of the left hand or wrist and patient has full motion of the left wrist and hand without pain or difficulty. There is mild to moderate swelling over the left forearm and left upper arm. Compartments are soft. Radial pulse is 2+. The left upper extremity is warm and well-perfused. Patient has good range of motion of the left elbow with no significant pain. There is tenderness to palpation over the AC joint and anterior aspects of the left shoulder. There is no joint effusion. Patient has some pain and limitation with motion of the left shoulder. Sensation intact. Neurovascular status and circulatory status are intact. - Labs CBC & Chem 7: 12/24/23 06:47 12/24/23 06:47 Labs: Abnormal Lab Results - Last 24 Hours (Table) 12/24/23 12/24/23 Range/Units 06:47 06:47 RBC 3.67 L (4.10-5.20) X 10*6/uL Hgb 11.6 L (12.0-15.0) g/dL Hct 35.9 L (37.2-46.3) % MCV 97.8 H (80.0-97.0) FL Plt Count 132 L (140-440) X 10*3/uL Neutrophils # 8.11 H (1.80-7.70) X 10*3/uL Eosinophils # 0.03 L (0.04-0.35) X 10*3/uL Carbon Dioxide 21.1 L (21.6-31.8) mmol/L Est GFR (CKD-EPI) 41 L (>=60) Calcium 8.6 L (8.7-10.3) mg/dL Microbiology - Last 24 Hours (Table) 12/22/23 18:41 Blood Culture - Preliminary Blood 12/22/23 18:41 Blood Culture Gram Stain - Preliminary Blood Blood Culture - Preliminary Coagulase Negative Staph 12/22/23 18:41 Gram Stain - Final Hand - Left Wound Culture - Final Assessment and Plan (1) Left shoulder pain Current Visit: Yes Status: Acute Code(s): M25.512 - PAIN IN LEFT SHOULDER SNOMED Code(s): 8875432973 (2) Cellulitis Current Visit: Yes Status: Acute Code(s): L03.90 - CELLULITIS, UNSPECIFIED SNOMED Code(s): 864195869 (3) Dog bite Current Visit: Yes Status: Acute Code(s): W54.0XXA - BITTEN BY DOG, INITIAL ENCOUNTER SNOMED Code(s): 121744361 Plan: X-rays of the left shoulder dated 12/24/2023 are reviewed with a report as follows: 1. Osteopenia with mild AC joint arthropathy. Previous chest x-ray also demonstrates glenohumeral joint arthropathy with spurring. 1. Continue pain control. 2. Recommend that patient begin gentle range of motion exercises for the left shoulder as tolerated. Patient may benefit from a cortisone injection, but this would be done as an outpatient once her infection has cleared. We will follow as needed.
[2023-12-25 11:39] LABS: Basophils # (A) 0.03 X 10*3/uL (0.00-0.10); Basophils % (A) 0.4 %; Eosinophils # (A) 0.12 X 10*3/uL (0.04-0.35); Eosinophils % (A) 1.7 %; HCT 38.1 % (37.2-46.3); HGB 12.4 g/dL (12.0-15.0); Lymphocytes # (A) 1.19 X 10*3/uL (0.90-5.00); MCH 31.6 pg (27.0-32.0); MCHC 32.5 g/dL (32.0-37.0); MCV 97.2 FL (80.0-97.0); Mean Platelet Volume 11.4 FL (9.5-12.2); Monocytes # (A) 0.54 X 10*3/uL (0.20-1.00); Monocytes % (A) 7.7 %; NRBC Per 100 WBC 0 X 10*3/uL (0.00-0.01); Neutrophils # (A) 5.11 X 10*3/uL (1.80-7.70); Neutrophils % (A) 72.8 %; Platelet Count 145 X 10*3/uL (140-440); RBC 3.92 X 10*6/uL (4.10-5.20); WBC 7.02 X 10*3/uL (4.50-10.00)
[2023-12-25 12:28] LABS: BUN/Creat Ratio 14.85 Ratio (12.00-20.00); Blood Urea Nitrogen 19.3 mg/dL (9.0-27.0); Calcium 8.7 mg/dL (8.7-10.3); Carbon Dioxide 22.7 mmol/L (21.6-31.8); Chloride 105 mmol/L (96-109); Glucose 102 mg/dL (70-110); Potassium 3.4 mmol/L (3.5-5.5); Sodium 140 mmol/L (135-145)
--- NOTE | 2023-12-25 13:17 | P.PN ---
Subjective Progress Note Date: 12/25/23 Principal diagnosis: Reason for follow-up is left upper extremity dog bite cellulitis and positive blood culture Patient is a 83-year-old female with a past medical history significant for atrial fibrillation hyperlipidemia rheumatoid arthritis reflux have presenting to the hospital for evaluation of increasing swelling and redness to the left upper extremity apparently the patient has been bitten by her dog day before presentation to the hospital, patient be diagnosed with a left upper extremity dog bite cellulitis. On today's evaluation that is 12/25/2023, the patient denies any fever or any chills, patient is breathing comfortably on room air, the patient denies chest pain shortness of breath and no significant cough, patient denies abdominal pain, no nausea vomiting or diarrhea. Patient left upper extremity swelling and pain has slightly decreased no open wound or any drainage. Patient did have a white count of 7.02 and creatinine is 1.3 blood culture with coagulase-negative staph Objective - Vital Signs Vital signs: Vital Signs Temp 97.6 F 12/25/23 07:55 Pulse 63 12/25/23 07:55 Resp 16 12/25/23 07:55 BP 104/59 12/25/23 07:55 Pulse Ox 96 12/25/23 07:55 FiO2 Intake & Output 12/24/23 12/25/23 12/25/23 18:59 06:59 18:59 Intake Total 600 Output Total 950 Balance -950 600 Intake: Intake, IV Titration 100 Amount Ampicillin-Sulbactam 3 gm 100 In Sodium Chloride 0.9% 100 ml @ 200 mls/hr IVPB Q12H [facility] Rx#:[id number] Oral 500 Output: Urine 950 Other: Voiding Method Diaper Diaper Diaper External Catheter External Catheter External Catheter # Voids 1 - Exam GENERAL DESCRIPTION: An elderly female lying in bed in no distress RESPIRATORY SYSTEM: Unlabored breathing , decreased breath sounds at bases HEART: S1 S2 regular rate and rhythm , ABDOMEN: Soft , no tenderness EXTREMITIES: Left upper extremity swelling and redness slightly decreased - Labs CBC & Chem 7: 12/25/23 06:39 12/25/23 07:02 Labs: Abnormal Lab Results - Last 24 Hours (Table) 12/24/23 Range/Units 06:47 Carbon Dioxide 21.1 L (21.6-31.8) mmol/L Est GFR (CKD-EPI) 41 L (>=60) Calcium 8.6 L (8.7-10.3) mg/dL Microbiology - Last 24 Hours (Table) 12/22/23 18:41 Blood Culture - Preliminary Blood 12/22/23 18:41 Blood Culture Gram Stain - Preliminary Blood Blood Culture - Preliminary Coagulase Negative Staph 12/22/23 18:41 Gram Stain - Final Hand - Left Wound Culture - Final Assessment and Plan (1) Left arm cellulitis Current Visit: Yes Status: Acute Code(s): L03.114 - CELLULITIS OF LEFT UPPER LIMB SNOMED Code(s): 92050522723176058 (2) Positive blood culture Current Visit: Yes Status: Acute Code(s): R78.81 - BACTEREMIA SNOMED Code(s): 184915482 (3) Dog bite Current Visit: Yes Status: Acute Code(s): W54.0XXA - BITTEN BY DOG, INITIAL ENCOUNTER SNOMED Code(s): 569490438 Plan: 1patient presented to hospital with left hand and upper extremity pain and swelling redness after dog bite the day before presentation to the hospital we will need to cover for the polymicrobial raymond associated with a dog bite infection 2-patient did have a positive blood culture with staph epi possible skin contamination blood culture will be repeated document clearance 3-patient did have clinical improvement and will continue with Unasyn 3 g every 6 hours in view of clinical response and monitor clinical course closely Dictation was produced using [employer] dictation software. please excuse any grammatical, word or spelling errors. Time with Patient: Less than 30
--- NOTE | 2023-12-26 05:07 | PN ---
PROGRESS NOTE DATE OF SERVICE: 12/25/2023 SUBJECTIVE: This is an 83-year-old woman, who was admitted with significant dog bite and significant swelling, and pain is improving significantly. No chest pain or palpitations. No fever. CAT scan showed left apical atelectasis. PHYSICAL EXAMINATION: VITAL SIGNS: Pulse is 63, blood pressure n, and respirations 16. CHEST: Clear to auscultation. CARDIOVASCULAR SYSTEM: S1, S2. ABDOMEN: Soft. EXTREMITIES: Examination of the left arm, significant swelling present. NERVOUS SYSTEM: Nonfocal. LABORATORY DATA: Sodium 140, potassium 3.4. ASSESSMENT: 1. Left arm dog bite with failure of outpatient treatment with possible early sepsis and severe pain and severe swelling, improved. 2. History of previous sepsis. 3. Atrial fibrillation. 4. Gastroesophageal reflux disease. 5. Hyperlipidemia. 6. Bilateral atelectasis and left atypical shadow in the chest x-ray, possibly chronic changes in the CAT scan. RECOMMENDATIONS AND DISCUSSION: Recommend to continue the antibiotics. The patient is already on Eliquis. Prognosis guarded. Further recommendations to follow, to complete the workup. Continue the antibiotics. MMODL / IJN: [id number] / MTDD
[2023-12-26 09:34] LABS: Basophils # (A) 0.04 X 10*3/uL (0.00-0.10); Basophils % (A) 0.7 %; Eosinophils # (A) 0.21 X 10*3/uL (0.04-0.35); Eosinophils % (A) 3.7 %; HCT 39.3 % (37.2-46.3); HGB 12.6 g/dL (12.0-15.0); Lymphocytes # (A) 1.29 X 10*3/uL (0.90-5.00); Lymphocytes % (A) 22.7 %; MCHC 32.1 g/dL (32.0-37.0); MCV 96.8 FL (80.0-97.0); Mean Platelet Volume 10.5 FL (9.5-12.2); Monocytes # (A) 0.49 X 10*3/uL (0.20-1.00); Monocytes % (A) 8.6 %; NRBC Per 100 WBC 0 X 10*3/uL (0.00-0.01); Neutrophils # (A) 3.63 X 10*3/uL (1.80-7.70); Neutrophils % (A) 63.8 %; Platelet Count 168 X 10*3/uL (140-440); RBC 4.06 X 10*6/uL (4.10-5.20); RDW 13.6 % (11.5-14.5); WBC 5.69 X 10*3/uL (4.50-10.00)
[2023-12-26 09:58] LABS: BUN/Creat Ratio 14.85 Ratio (12.00-20.00); Blood Urea Nitrogen 19.3 mg/dL (9.0-27.0); Carbon Dioxide 25.3 mmol/L (21.6-31.8); Chloride 104 mmol/L (96-109); Glucose 88 mg/dL (70-110); Potassium 3.5 mmol/L (3.5-5.5); Sodium 141 mmol/L (135-145)
--- NOTE | 2023-12-26 13:26 | P.PN ---
Subjective Progress Note Date: 12/26/23 Principal diagnosis: Reason for follow-up is left upper extremity dog bite cellulitis and positive blood culture Patient is a 83-year-old female with a past medical history significant for atrial fibrillation hyperlipidemia rheumatoid arthritis reflux have presenting to the hospital for evaluation of increasing swelling and redness to the left upper extremity apparently the patient has been bitten by her dog day before presentation to the hospital, patient be diagnosed with a left upper extremity dog bite cellulitis. On today's evaluation that is 12/26/2023,the patient remains to be afebrile, patient is on room air not requiring supplemental oxygen and denies any shortness of breath no chest pain or cough.Patient denies having any nausea or vomiting, no abdominal pain and no diarrhea has been reported, left upper extremity swelling or redness has decreased in intensity Patient white count is 5.69 creatinine is 1.3 Objective - Vital Signs Vital signs: Vital Signs Temp 96.9 F L 12/26/23 12:18 Pulse 66 12/26/23 12:18 Resp 17 12/26/23 12:18 BP 126/62 12/26/23 12:18 Pulse Ox 99 12/26/23 12:18 FiO2 Intake & Output 12/25/23 12/26/23 12/26/23 18:59 06:59 18:59 Intake Total 1620 700 Balance 1620 700 Intake: Intake, IV Titration 100 Amount Ampicillin-Sulbactam 3 gm 100 In Sodium Chloride 0.9% 100 ml @ 200 mls/hr IVPB Q12H [facility] Rx#:[id number] Oral 1620 600 Other: Voiding Method Diaper Diaper Diaper External Catheter External Catheter External Catheter # Voids 2 - Exam GENERAL DESCRIPTION: An elderly female lying in bed in no distress RESPIRATORY SYSTEM: Unlabored breathing , decreased breath sounds at bases HEART: S1 S2 regular rate and rhythm , ABDOMEN: Soft , no tenderness EXTREMITIES: Left upper extremity swelling and redness slightly decreased - Labs CBC & Chem 7: 12/26/23 06:10 12/26/23 06:10 Labs: Abnormal Lab Results - Last 24 Hours (Table) 12/26/23 12/26/23 Range/Units 06:10 06:10 RBC 4.06 L (4.10-5.20) X 10*6/uL Est GFR (CKD-EPI) 41 L (>=60) Microbiology - Last 24 Hours (Table) 12/25/23 06:39 Blood Culture - Preliminary Blood 12/22/23 18:41 Blood Culture Gram Stain - Final Blood Blood Culture - Final Coagulase Negative Staph 12/22/23 18:41 Blood Culture - Preliminary Blood Assessment and Plan (1) Left arm cellulitis Current Visit: Yes Status: Acute Code(s): L03.114 - CELLULITIS OF LEFT UPPER LIMB SNOMED Code(s): 38624996066195867 (2) Positive blood culture Current Visit: Yes Status: Acute Code(s): R78.81 - BACTEREMIA SNOMED Code(s): 555303698 (3) Dog bite Current Visit: Yes Status: Acute Code(s): W54.0XXA - BITTEN BY DOG, INITIAL ENCOUNTER SNOMED Code(s): 691690420 Plan: 1patient presented to hospital with left hand and upper extremity pain and swelling redness after dog bite the day before presentation to the hospital we will need to cover for the polymicrobial raymodn associated with a dog bite infection 2-patient did have a positive blood culture with staph epi possible skin contamination blood culture will be repeated document clearance 3-patient did have clinical improvement and will continue with Unasyn 3 g every 6 hours however if the patient loses her IV antibiotic will be switched to oral Augmentin 875 twice daily which will be continued on discharge for 7 days Dictation was produced using [employer] dictation software. please excuse any grammatical, word or spelling errors. Time with Patient: Less than 30
--- NOTE | 2023-12-26 14:05 | US ---
EXAMINATION TYPE: US venous doppler duplex UE LT DATE OF EXAM: 12/26/2023 COMPARISON: NONE CLINICAL INDICATION: Female, 83 years old with history of edema; patient here with shoulder pain and infection, she has chronic swelling in left arm from lymphedema post multiple lymph node resection ye ars ago, h/o mastectomy SIDE PERFORMED: Left Left Arm: Negative for DVT Grayscale, color doppler, spectral doppler imaging performed of the deep veins of the upper extremiti es. There is normal flow, compressibility and vascular waveforms. IMPRESSION: No evidence of deep venous thrombosis.
[2023-12-26] MEDS: AMOXIC-POT CLAV 875-125MG 1 EACH TAB PO SCH (14:29)
--- NOTE | 2023-12-26 16:18 | PN ---
PROGRESS NOTE DATE OF SERVICE: 12/26/2023 SUBJECTIVE: This is an 83-year-old woman, who was admitted with left thumb dog bite, also had some swelling and diminished, limitation of the movement also. No chest pain. No palpitation. CAT scan of the chest has been noted. PHYSICAL EXAMINATION: VITAL SIGNS: Pulse is 64, blood pressure 124/76, and respirations 16. CHEST: Clear to auscultation. ABDOMEN: Soft. EXTREMITIES: Left upper arm significant swelling present. LABORATORY DATA: Blood cultures, coag-negative staph. ASSESSMENT: 1. Left arm dog bite with failure of outpatient treatment with possible early sepsis, severe pain and severe swelling of the left hand, it is improving. 2. History of previous sepsis. 3. Atrial fibrillation. 4. Gastroesophageal reflux disease. 5. Hyperlipidemia. 6. Bilateral atelectasis and left atypical shadow in the chest x-ray, possibly chronic changes in the CAT scan. Recommend close followup in the outpatient setting. RECOMMENDATIONS: Recommend to continue current PT/OT evaluation. Also recommend ultrasound of the left upper extremity to rule out the possibility of DVT. Further recommendations to follow. PT/OT evaluation. Range of motion arrange outpatient PT/OT. MMODL / IJN: [id number] / [facility] CENTERParsanna
[2023-12-26 20:51] VITALS: RESP 16
[2023-12-27 09:04] VITALS: BP 116/65; PULSE 68; TEMP 98.3
--- NOTE | 2023-12-27 10:29 | CDI ---
Documentation Clarification Form Date: 12/27/2023 10:16:58 AM From: Juliet Santoyo RN CCDS Phone: [phone] Admit Date: 12/23/2023 10:51:00 AM Patient Name: Cynthia Kelly Visit Number: [id number] Discharge Date: ATTENTION: The Clinical Documentation Specialists (CDI) and [facility] Coding Staff appreciate your assistance in clarifying documentation. Please respond to the clarification below the line at the bottom and electronically sign. The CDI & [facility] Coding staff will review the response and follow-up if needed. Please note: Queries are made part of the Legal Health Record. If you have any questions, please contact the author of this message via ITS. Dr. Clement Motley Kidney failure is documented 12/23, H&P. Additional clarification regarding the type and acuity of renal failure is requested. History/Risk factors: Cynthia Kelly 83 year old female presents to the ED for Dog bite that was increasing in redness and swelling. Medical History: Atrial Fibrillation, GERD, HLD, RA and previous Sepsis. 12/23, H&P. Clinical Indicators: Labs, 12/22: Wbc 10.4 Hgb 13.8 Patient presents with a BUN 36 / CR 1.31 / and GFR 38 on 12/22/2023 Subsequent BUN 22.8 / CR 1.3 / and GFR 41 on 12/24/2023 Patients baseline BUN 33 / CR 140 / and GFR 35 on 06/23/2023 Treatment: 12/22 0.9 NS 1L IV Fluid bolus. No NSAIDS ordered. Please clarify the type and acuity renal failure, if known: [ ] Acute Renal Failure [ ] Unable to determine [ ] Other, please specify (Template Last Revised: January 2021) Unable to determine MTDD
--- NOTE | 2023-12-27 12:01 | P.PN ---
Subjective Progress Note Date: 12/27/23 Principal diagnosis: Reason for follow-up is left upper extremity dog bite cellulitis and positive blood culture Patient is a 83-year-old female with a past medical history significant for atrial fibrillation hyperlipidemia rheumatoid arthritis reflux have presenting to the hospital for evaluation of increasing swelling and redness to the left upper extremity apparently the patient has been bitten by her dog day before presentation to the hospital, patient be diagnosed with a left upper extremity dog bite cellulitis. On today's evaluation that is 12/27/2023, the patient continues to be afebrile, the patient is on room air and breathing comfortably, the Pt denies having any chest pain or cough, the patient denies having any abdominal pain no vomiting, mention to have some diarrhea however the left upper extremity pain and swelling has decreased. Patient did have normal white count as of yesterday no CBC was done today blood culture repeat has been negative Objective - Vital Signs Vital signs: Vital Signs Temp 98.3 F 12/27/23 07:56 Pulse 68 12/27/23 07:56 Resp 16 12/27/23 07:56 BP 116/65 12/27/23 07:56 Pulse Ox 98 12/27/23 07:56 FiO2 Intake & Output 12/26/23 12/27/23 12/27/23 18:59 06:59 18:59 Intake Total 1620 Balance 1620 Intake: Oral 1620 Other: Voiding Method Diaper Diaper External Catheter External Catheter # Voids 3 - Exam GENERAL DESCRIPTION: An elderly female lying in bed in no distress RESPIRATORY SYSTEM: Unlabored breathing , decreased breath sounds at bases HEART: S1 S2 regular rate and rhythm , ABDOMEN: Soft , no tenderness EXTREMITIES: Left upper extremity swelling and redness slightly decreased - Labs CBC & Chem 7: 12/26/23 06:10 12/26/23 06:10 Labs: Abnormal Lab Results - Last 24 Hours (Table) 12/26/23 Range/Units 06:10 Est GFR (CKD-EPI) 41 L (>=60) Microbiology - Last 24 Hours (Table) 12/25/23 06:39 Blood Culture - Preliminary Blood 12/22/23 18:41 Blood Culture Gram Stain - Final Blood Blood Culture - Final Coagulase Negative Staph 12/22/23 18:41 Blood Culture - Preliminary Blood Assessment and Plan (1) Left arm cellulitis Current Visit: Yes Status: Acute Code(s): L03.114 - CELLULITIS OF LEFT UPPER LIMB SNOMED Code(s): 09885358447046816 (2) Positive blood culture Current Visit: Yes Status: Acute Code(s): R78.81 - BACTEREMIA SNOMED Code(s): 526811942 (3) Dog bite Current Visit: Yes Status: Acute Code(s): W54.0XXA - BITTEN BY DOG, INITIAL ENCOUNTER SNOMED Code(s): 468150936 Plan: 1patient presented to hospital with left hand and upper extremity pain and swelling redness after dog bite the day before presentation to the hospital we will need to cover for the polymicrobial raymond associated with a dog bite infection 2-patient did have a positive blood culture with staph epi possible skin contamination blood culture will be repeated document clearance 3-patient did have clinical improvement and will finish therapy with a 7-day course of oral Augmentin on discharge discussed with [facility] for admitting team patient has been encouraged to increase her probiotic and yogurt intake that will help with the diarrhea Dictation was produced using [employer] dictation software. please excuse any grammatical, word or spelling errors. Time with Patient: Less than 30
--- NOTE | 2023-12-27 14:14 | P.DS ---
Providers Date of admission: 12/23/23 10:51 Expected date of discharge: 12/27/23 Attending physician: Angelito Trevizo MD Consults: 12/22/23 18:45 Consult Physician Stat Consulting Provider: Abimael Rivers Consult Reason/Comments: cellulitis/animal bite Do you want consulting provider notified?: Yes 12/23/23 15:42 Consult Physician Routine Consulting Provider: Tesfaye Jones Consult Reason/Comments: dog bite to hand/eval for compartment syndrome Do you want consulting provider notified?: Yes Primary care physician: Karely Talbot [facility] Hospital Course: Final diagnosis Left arm dog bite with failure of outpatient treatment with early sepsis and severe pain with severe swelling of the left hand, improving History of previous sepsis Left upper extremity swelling, DVT ruled out, Doppler was negative GERD Hyperlipidemia History of rheumatoid arthritis History of breast cancer with chemo and radiation History of atrial fibrillation Bilateral atelectasis and the left atypical shadow in the chest x-ray possibly chronic changes on CT, recommend follow-up in the outpatient setting Discharge disposition Patient is being discharged in a stable condition with guarded prognosis to home. Patient will follow-up with Dr. Talbot in the outpatient setting upon discharge. Patient is to continue with oral antibiotics in the form of Augmentin twice daily for 1 week and close outpatient follow-up with orthopedics as needed and infectious disease as scheduled. Patient having home care arranged and will continue with PT/OT therapy outpatient. Total time taken is greater than 35 minutes. Hospital course This is a 83-year-old female who was recently admitted with left upper extremity swelling with failure of outpatient treatment from her dog biting her while attempting to give the dog medication. Patient started on antibiotics and also evaluated by infectious disease and orthopedics. No plans of surgical intervention and imaging was done which was negative for DVT on the left upper extremity. Swelling improved and patient has been instructed to continue elevating the left upper extremity while at rest and also will be having home care with physical therapy in the outpatient setting. Patient is high risk for developing frozen shoulder on the left and instructed to follow-up with orthopedics outpatient. Patient showed clinical improvement and will transition to oral Augmentin on discharge for 1 week with close outpatient follow-up with infectious disease. Cultures were negative as well. Patient has been cleared by consultations and would like to go home. Please refer to consultation notes for further HPI. Currently no reports of chest pain, shortness of breath, or palpitations. Patient is afebrile. No reports of nausea or vomiting and patient is tolerating diet. Patient will be discharged home today. Guarded prognosis Physical exam: Gen: This is a 83-year-old female who is awake, alert and oriented x 3, well- developed, well-nourished HEENT: Head is atraumatic, normocephalic. Pupils equal, round. Sclerae is anicteric. NECK: Supple. No JVD. No lymphadenopathy. No thyromegaly. LUNGS: Clear to auscultation. No wheezes or rhonchi. No intercostal retractions. HEART: Regular rate and rhythm. No murmur. ABDOMEN: Soft. Bowel sounds are present. No masses. No tenderness. EXTREMITIES: No pedal edema. No calf tenderness. Left upper extremity swelling, significantly improved, increased weakness 3/5 on strength of the left upper extremity NEUROLOGICAL: Patient is awake, alert and oriented x3. Cranial nerves 2 through 12 are grossly intact. Please refer to medication reconciliation sheet for a list of medications. The impression and plan of care has been dictated by Megan Marqusi, Nurse Practitioner as directed. Dr. Tolu MD I have performed a history and examination and MDM of this patient, discussed the same with the dictator, and agree with the dictator's assessment and plan as written ,documented as a scribe. Based on total visit time, I have performed more than 50% of the visit. Patient Condition at Discharge: Stable Plan - Discharge Summary Discharge Rx Participant: No New Discharge Prescriptions: New Amoxic-Pot Clav 875-125Mg [Augmentin 875-125] 1 each PO Q12HR 7 Days #14 tab Acetaminophen Tab [Tylenol] 650 mg PO Q6HR PRN tab PRN Reason: Fever And/ Or Pain Continue Levothyroxine Sodium [Synthroid] 100 mcg PO DAILY Metoprolol Succinate (ER) [Toprol XL] 25 mg PO DAILY traZODone HCL [Desyrel] 50 mg PO HS traMADol HCL 50 mg PO HS Furosemide [Lasix] 40 mg PO DAILY lisinopriL [Zestril] 2.5 mg PO DAILY Cetirizine HCl [Zyrtec] 10 mg PO HS Apixaban [Eliquis] 5 mg PO BID Spironolactone [Aldactone] 12.5 mg PO DAILY Discontinued Amoxic-Pot Clav 875-125Mg [Augmentin 875-125] 1 tab PO DIRECTED Discharge Medication List Levothyroxine Sodium [Synthroid] 100 mcg PO DAILY 01/01/20 [History] Apixaban [Eliquis] 5 mg PO BID 12/22/23 [History] Cetirizine HCl [Zyrtec] 10 mg PO HS 12/22/23 [History] Furosemide [Lasix] 40 mg PO DAILY 12/22/23 [History] Metoprolol Succinate (ER) [Toprol XL] 25 mg PO DAILY 12/22/23 [History] Spironolactone [Aldactone] 12.5 mg PO DAILY 12/22/23 [History] lisinopriL [Zestril] 2.5 mg PO DAILY 12/22/23 [History] traMADol HCL 50 mg PO HS 12/22/23 [History] traZODone HCL [Desyrel] 50 mg PO HS 12/22/23 [History] Acetaminophen Tab [Tylenol] 650 mg PO Q6HR PRN tab 12/27/23 [Rx] Amoxic-Pot Clav 875-125Mg [Augmentin 875-125] 1 each PO Q12HR 7 Days #14 tab 12/27/23 [Rx] Follow up Appointment(s)/Referral(s): Karely Talbot MD [Primary Care Provider] - 12/30/23 10:30 am [facility], [NON-STAFF] - 1 Week Tesfaye Jones DO [Doctor of Osteopathic Medicine] - As Needed Abimael Rivers MD [STAFF PHYSICIAN] - 01/03/24 3:30 pm Patient Instructions/Handouts: Amoxicillin/Clavulanate Potassium (By mouth), Cellulitis (ED) Activity/Diet/Wound Care/Special Instructions: Activity limited until follow-up Follow-up with primary care provider on discharge Continue to elevate left upper extremity while at rest Continue with antibiotics until finished Follow-up with infectious disease outpatient Discharge Disposition: HOME WITH HOME HEALTH SERVICES
== END 2023-12-27 13:00 | disposition home health service (06) | DRG 872 ==
LOC: EC 17:42 → 6NMEDSUR 18:48 → 5NMEDONC 19:37 → OBSVTOIN 12-23 10:51
PROVIDERS: ADMIT Internal Medicine; ATTEND Internal Medicine
DX: A41.9 Sepsis, unspecified organism (principal); L03.114 Cellulitis of left upper limb; J98.11 Atelectasis; T79.A12A Traumatic compartment syndrome of left upper extremity, initial encounter; S61.452A Open bite of left hand, initial encounter; W54.0XXA Bitten by dog, initial encounter; N28.9 Disorder of kidney and ureter, unspecified; M06.9 Rheumatoid arthritis, unspecified; M25.512 Pain in left shoulder; I48.91 Unspecified atrial fibrillation; E89.0 Postprocedural hypothyroidism; S61.052A Open bite of left thumb without damage to nail, initial encounter; I34.1 Nonrheumatic mitral (valve) prolapse; E78.5 Hyperlipidemia, unspecified; K21.9 Gastro-esophageal reflux disease without esophagitis; Z85.3 Personal history of malignant neoplasm of breast; Z87.891 Personal history of nicotine dependence; Z90.13 Acquired absence of bilateral breasts and nipples; Z92.3 Personal history of irradiation; Z92.21 Personal history of antineoplastic chemotherapy; Z79.01 Long term (current) use of anticoagulants; Z86.19 Personal history of other infectious and parasitic diseases; Z79.890 Hormone replacement therapy; Z79.899 Other long term (current) drug therapy; Z80.3 Family history of malignant neoplasm of breast; Z88.8 Allergy status to other drugs, medicaments and biological substances
CPT/HCPCS: 36415; 71045; 71250; 80048; 80053; 85025; 85027; 87040; 87070; 87205; 96361; 96365; 96375; 99285